=== PATIENT | male | born 1945 | race Caucasian/White ===

== ENCOUNTER 2019-04-19 08:35 | Emergency (ER) | payer MEDICARE, SELFPAY | END 2019-04-19 12:00 | disposition home or self-care (01) | PROVIDERS: Family Provider Family Medicine | DX: R11.2 Nausea with vomiting, unspecified (principal); R19.7 Diarrhea, unspecified | CPT/HCPCS: 80053; 81003; 83690; 85025; 87804 ×2; J2405; J7040 ==

== ENCOUNTER → 2019-07-05 10:01 | Outpatient (BNVA) | payer OTHER, SELFPAY | PROVIDERS: Family Provider Family Medicine; PCP Family Medicine; Visit Provider Otolaryngology | DX: J02.9 Acute pharyngitis, unspecified (principal); R13.10 Dysphagia, unspecified; J34.2 Deviated nasal septum; J34.3 Hypertrophy of nasal turbinates; K22.0 Achalasia of cardia | CPT/HCPCS: 99203; 99214 ==

== ENCOUNTER → 2019-08-01 09:24 | Outpatient (BNVA) | payer OTHER, SELFPAY | PROVIDERS: Family Provider Family Medicine; PCP Family Medicine; Visit Provider Otolaryngology | DX: R13.10 Dysphagia, unspecified (principal); J02.9 Acute pharyngitis, unspecified; J34.2 Deviated nasal septum; J34.3 Hypertrophy of nasal turbinates; K22.0 Achalasia of cardia | CPT/HCPCS: 99214 ==

== ENCOUNTER 2019-10-14 12:24 | Emergency (ER) | payer MEDICARE, SELFPAY ==
[2019-10-14 12:30] VITALS: BP 141/71; PULSE 64; RESP 16; TEMP 36.8; O2SAT 96; BMI 28.5
--- NOTE | 2019-10-14 12:49 | ED_ITS ---
HPI - Headache General: Chief Complaint: Headache Stated Complaint: headache Time Seen by Provider: 10/14/19 12:36 History of Present Illness: HPI Narrative: Patient is a 74 year old male presenting with a severe neuralgia attack. he is treated by Dr. Samuel in [place] for this and takes tegretol at home. He took a double dose this morning as he is instructed to do when these attacks happen. He says that attack started yesterday and he took 9 tegretol throughout the day and it went away - but is now back and not responding to the home meds. He showed me a paper from his doctor suggesting solu-medrol and benadryl for the symptoms. Prior notes from a few years ago here also indicate that phosphenytoin and toradol, as well as dilaudid may be helpful. Associated symptoms: Reports nausea; Deny chest pain or fever(s) Review of Systems General: Reports: 10 or more systems reviewed and unremarkable except in HPI and below Const: Denies: fever(s) or chills Eyes: Denies: change in vision ENMT: Reports: ear or mastoid pain Card: Denies: chest pain Resp: Denies: dyspnea GI: Reports: nausea; Denies: abdominal pain Neuro: Reports: headache(s); Denies: numbness in extremities, weakness in extremities, sensory changes, lack of coordination or difficulty walking [facility] ED PFSH: Medical History (Updated 10/14/19 @ 16:42 by Lazara Underwood MD) Atherosclerosis of coronary artery of [place] heart without angina pectoris Carpal tunnel syndrome Cricopharyngeal achalasia Deviated septum Dyslipidemia (high LDL; low HDL) Dysphagia High cholesterol HTN (hypertension) Hx of hyperlipidemia Hx of myocardial infarction Nasal turbinate hypertrophy Surgical History H/O neck surgery H/O shoulder surgery Hx of angioplasty Family History Other CAD (coronary artery disease) Cancer Stroke Denies family history of Diabetes Clotting disorder Dementia Hyperlipidemia Psychiatric illness Chronic kidney disease (CKD) Suicide Anesthesia complication Bleeding disorder Family history of premature coronary artery disease Lung disease Hypertension Social History Smoking and tobacco status: never smoked Alcohol intake: never Physical Exam Const: COMMON NORMALS: patient oriented x3 and alert GENERAL APPEARANCE: well kempt, in distress and anxious; not diaphoretic HENMT: COMMON NORMALS: normocephalic and hearing grossly normal bilaterally (not tested due to patient distress) HEAD & SCALP: normal to inspection and normocephalic FACE & SINUS: normal facial exam Neck/C-Spine: COMMON NORMALS: no JVD Chest: COMMONS NORMALS: normal inspection of the chest and normal palpation of entire chest wall Resp: COMMON NORMALS: normal respiratory effort, No use of accessory muscles and clear to auscultation bilaterally AUSCULTATION: clear to auscultation bilaterally Cardio: COMMON NORMALS: no JVD, regular rate, regular rhythm and No murmurs present (Cardio) RATE: regular rate RHYTHM: regular rhythm GI: COMMON NORMALS: Normal to inspection, nondistended, normoactive bowel sounds present and Soft to palpation PALPATION: Yes Soft to palpation Back/Pelvis: COMMON NORMALS: thoracic and lumbar spine normal to inspection Extremity: COMMON NORMALS: normal to inspection Neuro: COMMON NORMALS: patient oriented x3 SENSORIUM/ORIENTATION: Yes alert Psych: APPEARANCE: Yes well kempt Course Reevaluation(s): Reevaluation #1: Patient resting with eyes closed - reports some improvement with less than half of the solumedrol infused. Time: 13:38 Reevaluation #2: Much improved - but still having sharp pains every 15 seconds or so that are still very painful. Will try fosphenytoin and toradol - which he has had in the past with good results as well. Time: 14:41 Vital Signs: Vital signs: Vital Signs Temperature 98.3 F 10/14/19 12:30 Pulse Rate 65 10/14/19 16:58 Respiratory Rate 18 10/14/19 16:58 Blood Pressure 134/61 10/14/19 16:58 Pulse Oximetry 96 10/14/19 16:58 MDM - Headache MDM Narrative: Medical decision making narrative: Symptoms consistent with other episodes of trigeminal neuralgia for this patient - will try medications that have helped him in the past - with goal of discharge home. Discharge Plan Discharge Patient Disposition: Home, Self-Care Clinical Impression: Trigeminal neuralgia Condition: Stable Prescriptions: No Action gemfibrozil 600 mg tablet 600 mg PO BID RF: 0 rosuvastatin [Crestor] 10 mg tablet 10 mg PO DAILY RF: 0 aspirin [Adult Low Dose Aspirin] 81 mg tablet,delayed release (DR/EC) 81 mg PO BEDTIME RF: 0 cyanocobalamin (vitamin B-12) 1,000 mcg capsule 1,000 mcg PO DAILY RF: 0 krill oil 500 mg capsule 350 mg PO DAILY RF: 0 coenzyme Q10 [Co Q-10] 200 mg capsule 200 mg PO DAILY RF: 0 baclofen 10 mg tablet 10 mg PO TID RF: 0 diphenhydramine HCl 25 mg Tablet 12.5 mg PO BID RF: 0 carbamazepine 100 mg tablet,chewable 200 mg PO BID RF: 0 metoprolol tartrate 50 mg Tablet 50 mg PO BID RF: 0 losartan 25 mg tablet 25 mg PO DAILY RF: 0 Discharge Orders: Discharge Order (Routine); Ordered 10/14/19 Ordered By: Lazara Underwood Referrals: Vasyl Gaspar MD [Primary Care Provider] - Discharge Diet: Advance as tolerated Discharge Activity: Resume usual activity Patient Instructions: Trigeminal Neuralgia (ED) Activity Restrictions/Additional Instructions: Rest today as you may be dizzy from the medications. Resume your regular medications at home this evening. Return if new or worse symptoms, or if any symptoms that are not typical of your prior episodes occur. Follow up with Dr. Samuel by phone on Wednesday. Discharge Date/Time: 10/14/19 16:58 Coding Level of Care Code ED Exec. Creative Director for Kelsie Salcedo
[2019-10-14] MEDS: diphenhydrAMINE 50 mg/mL SDV 1mL 25 MG IVP (12:55)
[2019-10-14 13:41] VITALS: BP 123/83; PULSE 64; RESP 20; O2SAT 95
[2019-10-14] MEDS: ketorolac 30 mg/mL INJ 15 MG IVP (14:43)
[2019-10-14 14:45] VITALS: BP 126/72; PULSE 63; RESP 18; O2SAT 96
[2019-10-14] MEDS: fosphenytoin 1,000 MG in sodium chloride 0.9% (100 ml) 100 ML 200 MG IV (14:55)
[2019-10-14 16:58] VITALS: BP 134/61; PULSE 65; RESP 18; O2SAT 96
== END 2019-10-14 16:58 | disposition home or self-care (01) ==
PROVIDERS: Emergency Provider Emergency Medicine; PCP Family Medicine
DX: G50.0 Trigeminal neuralgia (principal); Z79.82 Long term (current) use of aspirin; E78.5 Hyperlipidemia, unspecified; I10 Essential (primary) hypertension; I25.2 Old myocardial infarction
CPT/HCPCS: 12345; 96365; 96367; 96375; 99283; J1200; J1885; J2930; J7050; Q2009

== ENCOUNTER → 2019-10-30 10:27 | Outpatient (BNVA) | payer MEDICARE, SELFPAY | PROVIDERS: PCP Family Medicine; Visit Provider Urology | DX: N40.0 Benign prostatic hyperplasia without lower urinary tract symptoms (principal); Z87.438 Personal history of other diseases of male genital organs; R35.8 Other polyuria; N52.1 Erectile dysfunction due to diseases classified elsewhere | CPT/HCPCS: 81001 ==

== ENCOUNTER 2020-02-01 09:09 | Outpatient (CLI) | payer MEDICARE, SELFPAY ==
--- NOTE | 2020-02-01 09:20 | FL_ITS ---
WS: [id number] Barium swallow and esophagram, 02/01/2020 Clinical Data: DYSPHAGIA Comparison: None. Fluoroscopy time: 1.0 minutes. Findings: The patient has had an anterior cervical disc fusion of C5-C7. There is obliteration of the C5-C6 dis c and narrowing at the C6-C7 disc. There is marked anterior osteoarthritic spurring from C2 through C 4 with calcification of the anterior longitudinal ligament at these levels. The patient swallowed the thick and thin barium, and it flowed through the hypopharynx without hesita tion. There is impingement by the C4-C5 anterior osteophyte onto the posterior surface of the hypopha rynx. No stricture, mass, polyp or erosion was seen. No aspiration or penetration occurred. The barium entered the esophagus and there was normal motility throughout. No hiatal hernia, reflux, stricture, polyp, mass, erosion or ulcer was noted. No reflux was present. FL/FL barium swallow [id number] Impression: 1. Large anterior osteophyte at C4-C5 which impinges onto the posterior surface of the hypopharynx. 2. 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 3. The thoracic esophagus was normal.
--- NOTE | 2020-02-01 09:25 | CT_ITS ---
WS: [id number] CT NECK WITH CONTRAST HISTORY: DYSPHAGIA TECHNIQUE: Contiguous 5 mm axial images are performed through the neck with intravenous contrast. Sag ittal and coronal reformats are also submitted. All CT scans at [facility] use at least o ne of these dose optimization techniques: automated exposure control; mA and/or kV adjustment per pat ient size (includes targeted exams where dose is matched to clinical indication); or iterative recons truction. CONTRAST: CONTRAST: Omnipaque 300; 95 mL IV. DLP: 773.94 mGy-cm. COMPARISON: None available. Nasopharynx, oropharynx, hypopharynx and larynx are unremarkable. No soft tissue masses or abnormal e nhancement. Torus tubarius and fossa of Rosenmuller and parapharyngeal fat are normal. No significant lymphadenopathy is identified. Thyroid gland and salivary glands are normally enhancing with no masses. Anterior cervical fusion from C5 through C7. Large anterior osteophytes in the cervical spine. Visualized portions of the skull base demonstrate no abnormalities. Orbits and globes are within norm al limits. No soft tissue masses. Visualized paranasal sinuses and mastoid air cells are normal. Lung apices are clear. CT/CT neck w con* [id number] IMPRESSION: No oropharyngeal mass or adenopathy.
[2020-02-01 10:03] LABS: Blood Urea Nitrogen 14 mg/dL (8-23)
== END 2020-02-01 09:10 | disposition home or self-care (01) ==
LOC: CT 09:10
PROVIDERS: PCP Family Medicine; Visit Provider Specialist
DX: R13.10 Dysphagia, unspecified (principal); M25.78 Osteophyte, vertebrae; M43.22 Fusion of spine, cervical region
CPT/HCPCS: 36415; 70491; 74220; 82565; 84520; Q9967

== ENCOUNTER 2020-02-02 10:29 | Outpatient (CLI) | payer MEDICARE, SELFPAY ==
--- NOTE | 2020-02-02 10:32 | FL_ITS ---
WS: [id number] Modified barium swallow, 02/02/2020 Clinical Data: Other dysphagia Comparison: None. Fluoroscopy time: 2.3 minutes. Findings: The patient initiated swallowing. There was no aspiration or penetration. There was posterior encroac hment by a large osteophyte at C4-C5 on the hypopharynx and results which decreased hypopharyngeal ex cursion. This osteophyte impinges on the movement of the barium bolus. The anterior cervical disc fus ion at C5-C7 is intact. FL/FL barium swallow modifd [id number] Impression: Osteophyte at C4-C5 which presses onto the posterior hypopharynx and impinges o n the movement of the barium bolus.
== END 2020-02-02 10:30 | disposition home or self-care (01) ==
LOC: RAD 10:30
PROVIDERS: PCP Family Medicine; Visit Provider Specialist
DX: R13.10 Dysphagia, unspecified (principal); M25.78 Osteophyte, vertebrae
CPT/HCPCS: 74230; 92611

== ENCOUNTER 2020-02-06 18:45 | Emergency (ER) | payer MEDICARE, SELFPAY ==
[2020-02-06 18:50] VITALS: BP 171/79; PULSE 67; RESP 18; TEMP 37.2; O2SAT 95; BMI 27.5
--- NOTE | 2020-02-06 19:46 | W.ED.NEUROSD ---
HPI - Neuro Symptoms/Deficit General: Chief Complaint: Neuro Symptoms/Deficit Stated Complaint: neuralgia attack? Time Seen by Provider: 02/06/20 19:46 History of Present Illness: HPI Narrative: Patient has he has attack of his trigeminal neuralgia. Home medicines not working he would like to have Solu-Medrol and Benadryl which it worked in the past. Said he is having pain shoot up in his head about every 7 to 12 seconds Onset (ago): hour(s) Associated symptoms: Deny chest pain, headache(s), nausea or vomiting Review of Systems Const: Denies: fever(s), chills or body aches Eyes: Denies: change in vision or blurry vision ENMT: Denies: throat pain or nasal congestion Card: Denies: chest pain or dyspnea on exertion Resp: Denies: dyspnea, productive cough or non-productive cough GI: Denies: abdominal pain, nausea or vomiting : Denies: difficulty urinating Musc: Denies: extremity pain Skin/Breast: Denies: rash Neuro: Reports: other (Trigeminal neuralgia attack/spasm left side of the head has keep ear covered to help with that from not occurring is had many attacks in the past); Denies: headache(s) Psych: Denies: anxiety or depression Sage/Lymph: Denies: easy bruising PFSH ED PFSH: Medical History (Updated 02/06/20 @ 21:17 by CONCHIS Mills) Atherosclerosis of coronary artery of [place] heart without angina pectoris Carpal tunnel syndrome Cricopharyngeal achalasia Deviated septum Dyslipidemia (high LDL; low HDL) Dysphagia Fatigue High cholesterol HTN (hypertension) Hx of hyperlipidemia Hx of myocardial infarction Nasal turbinate hypertrophy Surgical History H/O neck surgery H/O shoulder surgery Hx of angioplasty Family History Other CAD (coronary artery disease) Cancer Stroke Denies family history of Diabetes Clotting disorder Dementia Hyperlipidemia Psychiatric illness Chronic kidney disease (CKD) Suicide Anesthesia complication Bleeding disorder Family history of premature coronary artery disease Lung disease Hypertension Social History Smoking and tobacco status: never smoked Alcohol intake: never Marital status: Current occupational status: retired History of recent travel: No Physical Exam Const: COMMON NORMALS: no acute distress, average body habitus and patient oriented x3 HENMT: COMMON NORMALS: normocephalic HEAD & SCALP: normal to inspection and normocephalic FACE & SINUS: normal facial exam Eye: COMMON NORMALS: conjunctivae normal GENERAL EYE: appearance normal, both eyes and all related structures CONJUNCTIVA: Yes conjunctivae normal Neck/C-Spine: COMMON NORMALS: no JVD Chest: COMMONS NORMALS: normal inspection of the chest Resp: COMMON NORMALS: normal respiratory effort and clear to auscultation bilaterally AUSCULTATION: clear to auscultation bilaterally Cardio: COMMON NORMALS: no JVD, regular rate and regular rhythm RATE: regular rate RHYTHM: regular rhythm GI: COMMON NORMALS: Normal to inspection, nondistended, normoactive bowel sounds present Extremity: COMMON NORMALS: normal to inspection and full ROM Neuro: COMMON NORMALS: patient oriented x3, CN's II-XII intact bilaterally, moves all extremities and no focal motor deficits Course Vital Signs: Vital signs: Vital Signs Temperature 98.9 F 02/06/20 18:50 Pulse Rate 56 L 02/06/20 21:00 Respiratory Rate 16 02/06/20 21:00 Blood Pressure 134/69 02/06/20 21:00 Pulse Oximetry 96 02/06/20 21:00 MDM - Neuro Symptoms/Deficit MDM Narrative: Medical decision making narrative: flare up of trigeminal neuralgia, responded well to meds Discharge Plan Discharge Patient Disposition: Home Clinical Impression: Trigeminal neuralgia Condition: Stable Prescriptions: No Action aspirin [Adult Low Dose Aspirin] 81 mg tablet,delayed release (DR/EC) 81 mg PO BEDTIME RF: 0 cyanocobalamin (vitamin B-12) 1,000 mcg capsule 1,000 mcg PO DAILY RF: 0 krill oil 500 mg capsule 350 mg PO DAILY RF: 0 coenzyme Q10 [Co Q-10] 200 mg capsule 200 mg PO DAILY RF: 0 gemfibrozil 600 mg tablet 600 mg PO BID Qty: 180 RF: 3 losartan [Cozaar] 25 mg tablet 25 mg PO DAILY Qty: 90 RF: 3 rosuvastatin [Crestor] 10 mg tablet 10 mg PO DAILY Qty: 90 RF: 3 metoprolol tartrate 50 mg tablet 50 mg PO BID Qty: 180 RF: 3 diphenhydramine HCl 25 mg Tablet 12.5 mg PO BID RF: 0 carbamazepine 100 mg tablet,chewable 200 mg PO BID RF: 0 Discharge Orders: Discharge Order (Routine); Ordered 02/06/20 Ordered By: Edwin Rivera Referrals: Vasyl Gaspar MD [Primary Care Provider] - Discharge Diet: Usual diet Discharge Activity: Increase activity as tolerated Activity Restrictions/Additional Instructions: Follow-up your primary care provider as needed Discharge Date/Time: 02/06/20 21:32 Coding Level of Care Code ED Wardrobe Coordinator for Chg Fwd Exam Comprehensive
[2020-02-06] MEDS: diphenhydrAMINE 50 mg/mL SDV 1mL 25 MG IVP (20:21)
[2020-02-06 21:00] VITALS: BP 134/69; PULSE 56; RESP 16; O2SAT 96
== END 2020-02-06 21:32 | disposition home or self-care (01) ==
PROVIDERS: Emergency Provider Nurse Practitioner Family; PCP Family Medicine
DX: G50.0 Trigeminal neuralgia (principal); Z79.82 Long term (current) use of aspirin; E78.5 Hyperlipidemia, unspecified; I10 Essential (primary) hypertension; I25.2 Old myocardial infarction
CPT/HCPCS: 12345; 96374; 96375; 99283; J1200; J2930

== ENCOUNTER → 2020-07-30 08:51 | Outpatient (BNVA) | payer MEDICARE, SELFPAY | PROVIDERS: PCP Family Medicine; Visit Provider Internal Medicine Cardiovascular Disease | DX: E78.5 Hyperlipidemia, unspecified (principal) | CPT/HCPCS: 80061; 80076 ==

== ENCOUNTER → 2020-10-29 09:48 | Outpatient (BNVA) | payer MEDICARE, SELFPAY | PROVIDERS: PCP Family Medicine; Visit Provider Urology | DX: N40.0 Benign prostatic hyperplasia without lower urinary tract symptoms (principal); N52.1 Erectile dysfunction due to diseases classified elsewhere; Z87.438 Personal history of other diseases of male genital organs | CPT/HCPCS: 81003 ==

== ENCOUNTER → 2021-05-28 08:09 | Outpatient (BNVA) | payer MEDICARE, SELFPAY | PROVIDERS: PCP Family Medicine; Visit Provider Urology | DX: N40.0 Benign prostatic hyperplasia without lower urinary tract symptoms (principal) | CPT/HCPCS: 81003 ==

== ENCOUNTER → 2021-09-23 09:05 | Outpatient (BNVA) | payer MEDICARE, SELFPAY | PROVIDERS: PCP Family Medicine; Visit Provider Nurse Practitioner Family | DX: N40.0 Benign prostatic hyperplasia without lower urinary tract symptoms (principal) | CPT/HCPCS: 81003 ==

== ENCOUNTER → 2021-10-09 11:30 | Outpatient (BNVA) | payer MEDICARE, SELFPAY | PROVIDERS: PCP Family Medicine; Visit Provider Internal Medicine Cardiovascular Disease | DX: I25.10 Atherosclerotic heart disease of native coronary artery without angina pectoris (principal); E78.5 Hyperlipidemia, unspecified; I10 Essential (primary) hypertension | CPT/HCPCS: 99214 ==

== ENCOUNTER 2021-10-31 11:40 | Outpatient (CLI) | payer MEDICARE, SELFPAY ==
--- NOTE | 2021-10-31 | XR_ITS ---
WS: [id number] SKULL, 4 VIEWS HISTORY: RIGHT TEMPORAL HEADACHE COMPARISON: None available. Skull appears intact. No depressed skull fracture. No air-fluid levels in the sinuses. The bony structures are unremarkable. XR/XR skull min 4V* [id number] IMPRESSION: Negative skull radiographs.
== END 2021-10-31 11:41 | disposition home or self-care (01) ==
LOC: RADOUTREAD 11-03 11:42
PROVIDERS: PCP Family Medicine; Visit Provider Nurse Practitioner
DX: R51.9 Headache, unspecified (principal)
CPT/HCPCS: 70260

== ENCOUNTER → 2021-12-30 15:02 | Outpatient (BNVA) | payer MEDICARE, SELFPAY | PROVIDERS: PCP Family Medicine; Visit Provider Urology | DX: N40.1 Benign prostatic hyperplasia with lower urinary tract symptoms (principal); R35.1 Nocturia; R33.9 Retention of urine, unspecified | CPT/HCPCS: 51741; 51798; 81003; 99213 ==

== ENCOUNTER 2022-05-07 06:00 | Outpatient (RCR) | payer MEDICARE, SELFPAY | END 2022-05-30 23:59 | disposition home or self-care (01) | LOC: SOT 06:00 | PROVIDERS: PCP Family Medicine; Visit Provider Family Medicine | DX: M65.321 Trigger finger, right index finger (principal) | CPT/HCPCS: 97018; 97035; 97110; 97140; 97166 ==

== ENCOUNTER → 2022-05-12 13:25 | Outpatient (BNVA) | payer MEDICARE, SELFPAY | PROVIDERS: PCP Family Medicine; Visit Provider Nurse Practitioner Family | DX: I25.10 Atherosclerotic heart disease of native coronary artery without angina pectoris (principal); I10 Essential (primary) hypertension; I25.2 Old myocardial infarction | CPT/HCPCS: 99214 ==

== ENCOUNTER → 2022-11-24 16:18 | Outpatient (BNVA) | payer MEDICARE, SELFPAY | PROVIDERS: PCP Family Medicine; Visit Provider Internal Medicine Cardiovascular Disease | DX: N40.0 Benign prostatic hyperplasia without lower urinary tract symptoms (principal); Z79.01 Long term (current) use of anticoagulants; R06.02 Shortness of breath; I25.10 Atherosclerotic heart disease of native coronary artery without angina pectoris; I10 Essential (primary) hypertension; Z86.39 Personal history of other endocrine, nutritional and metabolic disease | CPT/HCPCS: 36415; 71046; 80048; 83880; 85025; 85378; 99214 ==

== ENCOUNTER → 2023-06-02 13:57 | Outpatient (BNVA) | payer MEDICARE, SELFPAY | PROVIDERS: PCP Family Medicine; Visit Provider Internal Medicine Cardiovascular Disease | DX: I25.10 Atherosclerotic heart disease of native coronary artery without angina pectoris (principal); E78.5 Hyperlipidemia, unspecified; I83.91 Asymptomatic varicose veins of right lower extremity; I10 Essential (primary) hypertension | CPT/HCPCS: 99214 ==

== ENCOUNTER 2023-06-22 11:57 | Outpatient (CLI) | payer MEDICARE, SELFPAY ==
--- NOTE | 2023-06-22 12:30 | USCV_ITS ---
Vasyl Tam Age: 78 Gender: M : 1945 Exam Date: 06/22/2023 13:05 Ordering Phys: Gee Moreira MD ([email or web address]) Technologist: AMELIE [place] [facility] [place]: HISTORY: PROCEDURES: FINDINGS: The veins were found to be easily compressible with spontaneous blood flow. Non pulsatile flow pattern. No significant venous reflux were noted CONCLUSIONS No significant venous reflux either in the deep or in the superficial veins on the right side. No evidence of DVT in the above-mentioned identifiable veins Dr Gee Moreira MD [facility] (Electronically Signed) Final Date: 23 June 2023 19:03 S
== END 2023-06-22 11:58 | disposition home or self-care (01) ==
LOC: RAD 11:58
PROVIDERS: PCP Family Medicine; Visit Provider Internal Medicine Cardiovascular Disease
DX: R06.02 Shortness of breath (principal)
CPT/HCPCS: 93971; 99214

== ENCOUNTER 2023-08-01 11:19 | Emergency (ER) | payer MEDICARE, SELFPAY ==
[2023-08-01 11:32] VITALS: BP 120/71; PULSE 71; RESP 16; TEMP 36.5; O2SAT 97; BMI 24.1
--- NOTE | 2023-08-01 11:50 | ED_ITS ---
HPI - Headache General: Chief Complaint: Headache Stated Complaint: ear&head pain Time Seen by Provider: 08/01/23 11:36 Source: patient Mode of arrival: ambulatory Limitations: no limitations History of Present Illness: 78-year-old male who has a long history of trigeminal neuralgia. He states that he started having head pain on the left side of his head that was a lightening type pain that started today states it feels just like his previous trigeminal neuralgia. He states the pain severe he rates it a 9 out of 10 denies any vomiting denies any fever Associated symptoms: Deny chest pain, fever(s), nausea, rash or vomiting Review of Systems Const: Denies: fever(s), chills, body aches or change in appetite ENMT: Denies: throat pain or dental pain Card: Denies: chest pain Resp: Denies: dyspnea GI: Denies: abdominal pain, nausea, vomiting or diarrhea Musc: Denies: neck pain or back pain Skin/Breast: Denies: rash Neuro: Reports: headache(s) PFSH ED PFSH: Medical History Polyuria Fatigue Pt ATTRIBUTES THIS TO THE NECK SURGERY HE HAD 2008. Dyslipidemia (high LDL; low HDL) Atherosclerosis of coronary artery of [place] heart without angina pectoris High cholesterol Carpal tunnel syndrome HTN (hypertension) Hx of hyperlipidemia Hx of myocardial infarction Cricopharyngeal achalasia Nasal turbinate hypertrophy Deviated septum Dysphagia Surgical History History of carpal tunnel surgery H/O shoulder surgery H/O neck surgery Hx of angioplasty Family History Father No problems noted. Mother , in her 90's No problems noted. Other CAD (coronary artery disease) Cancer Stroke Denies family history of Diabetes Clotting disorder Dementia Hyperlipidemia Psychiatric illness Chronic kidney disease (CKD) Suicide Anesthesia complication Bleeding disorder Family history of premature coronary artery disease Lung disease Hypertension Social History Smoking and tobacco/nicotine status: never used tobacco/nicotine Alcohol intake: never Substance/Drug Use: never Marital status: Current occupational status: retired Physical Exam Const: COMMON NORMALS: no acute distress, patient oriented x3 and healthy appearing HENMT: COMMON NORMALS: normocephalic and atraumatic HEAD & SCALP: normocephalic and atraumatic Neck/C-Spine: COMMON NORMALS: full ROM and supple Chest: COMMONS NORMALS: normal inspection of the chest Resp: COMMON NORMALS: normal respiratory effort Cardio: COMMON NORMALS: regular rate, regular rhythm and No murmurs present (Cardio) RATE: regular rate RHYTHM: regular rhythm Extremity: COMMON NORMALS: normal to inspection and full ROM Neuro: COMMON NORMALS: patient oriented x3, moves all extremities and no focal motor deficits Psych: COMMON NORMALS: mental status grossly normal, Normal thought process present and cooperative THOUGHT PROCESS: Normal thought process present Skin: COMMON NORMALS: no rashes or lesions noted and no wounds GENERAL SKIN EXAM: no rashes or lesions noted Course Vital Signs: Vital signs: Vital Signs Temperature 97.7 F 08/01/23 11:32 Pulse Rate 67 08/01/23 12:05 Respiratory Rate 14 08/01/23 12:05 Blood Pressure 125/68 08/01/23 12:05 Pulse Oximetry 96 08/01/23 12:05 Oxygen Delivery Me thod Room Air 08/01/23 11:32 MDM - Headache Medical Decision Making Patient presents with headache consistent with his trigeminal neuralgia headaches much improved here after meds no signs of temporal arteritis or subarachnoid hemorrhage. He is stable for discharge he is follows PCP and return if worsening he understands agrees to plan Medical Records I reviewed the patient's medical records. No radiology studies performed this visit Discharge Plan Discharge Patient Disposition: Home Clinical Impression: Headache Condition: Stable Prescriptions: No Action cholecalciferol (vitamin D3) 50 mcg (2,000 unit) capsule 50 mcg PO DAILY aspirin [Adult Low Dose Aspirin] 81 mg tablet,delayed release (DR/EC) 81 mg PO BEDTIME cyanocobalamin (vitamin B-12) 1,000 mcg capsule 1,000 mcg PO DAILY coenzyme Q10 [Co Q-10] 200 mg capsule 200 mg PO DAILY tamsulosin 0.4 mg capsule 0.4 mg PO BID nitroglycerin 0.4 mg tablet, sublingual See Rx Instructions .ROUTE .COMPLEX Qty: 100 5RF Dose Instruction: DISSOLVE 1 TABLET UNDER THE TONGUE EVERY 5 MINUTES NEEDED FOR CHEST PAIN, DO NOT EXCEED 3 DOSES PER EPISODE Rx Instructions: DISSOLVE 1 TABLET UNDER THE TONGUE EVERY 5 MINUTES NEEDED FOR CHEST PAIN, DO NOT EXCEED 3 DOSES PER EPISODE amlodipine 5 mg tablet 5 mg PO DAILY Qty: 100 3RF losartan [Cozaar] 25 mg tablet 25 mg PO DAILY Qty: 90 3RF gemfibrozil 600 mg tablet See Rx Instructions .ROUTE .COMPLEX Qty: 180 3RF Dose Instruction: TAKE 1 TABLET TWICE A DAY Rx Instructions: TAKE 1 TABLET TWICE A DAY carbamazepine 100 mg tablet,chewable 100 mg PO BID Discharge Orders: Discharge ED (Routine); Ordered 08/01/23 Ordered By: Lavon Mercer Referrals: Vasyl Gaspar MD [Primary Care Provider] - 1-3 days Discharge Diet: Advance as tolerated Discharge Activity: Resume usual activity Patient Instructions: General Headache (ED) Coding Level of Care Code ED Riprap Worker for Kelsie Salcedo
[2023-08-01 11:59] VITALS: RESP 20; O2SAT 95
[2023-08-01] MEDS: HYDROmorphone 1 mg/mL INJ 1 mL 0.5 MG IVP (11:59)
[2023-08-01] MEDS: ketorolac 30 mg/mL INJ 15 MG IVP (12:00)
[2023-08-01] MEDS: diphenhydrAMINE 50 mg/mL SDV 1mL 25 MG IVP (12:01)
[2023-08-01] MEDS: dexamethasone 10 mg/mL INJ IVP (12:02)
[2023-08-01 12:05] VITALS: BP 125/68; PULSE 67; RESP 14; O2SAT 96
[2023-08-01 12:43] VITALS: BP 129/70; PULSE 64; O2SAT 94
== END 2023-08-01 12:44 | disposition home or self-care (01) ==
PROVIDERS: Emergency Provider Emergency Medicine; PCP Family Medicine
DX: R51.9 Headache, unspecified (principal); Z79.82 Long term (current) use of aspirin; E78.5 Hyperlipidemia, unspecified; I25.10 Atherosclerotic heart disease of native coronary artery without angina pectoris; I10 Essential (primary) hypertension; I25.2 Old myocardial infarction
CPT/HCPCS: 96374; 96375; 99284; J1100; J1170; J1200; J1885

== ENCOUNTER 2023-08-02 08:25 | Emergency (ER) | payer MEDICARE, SELFPAY ==
[2023-08-02] VITALS (7 sets, daily range): BP systolic 131–167; BP diastolic 64–96; PULSE 60–79; RESP 16–23; TEMP 36.6; O2SAT 95–99; BMI 23.8
[2023-08-02 09:01] LABS: Basophils % 0.2 %; Eosinophils % 0.3 %; Hematocrit 45.3 % (37-53); Lymphocytes # 1.8 10^3/uL (0.8-4.8); Lymphocytes % 19.8 %; Mean Corpuscular Hemoglobin 30.5 pg (27-33); Mean Corpuscular Volume 95.4 fl (82-101); Mean Platelet Volume 9.8 fL (7.4-10.4); Monocytes # 0.9 10^3/uL (0.2-0.9); Monocytes % 9.4 %; Neutrophils # 6.48 10^3/uL (1.8-7.7); Nucleated Red Blood Cells % 0 %; Platelet Count 252 10^3/cmm (157-399); Red Blood Count 4.75 10^6/uL (3.85-5.65); Red Cell Distribution Width 13.2 % (12.1-15.1); White Blood Count 9.26 10^3/uL (3.29-11.43)
--- NOTE | 2023-08-02 09:05 | ED_ITS ---
HPI - Headache 2 General: Chief Complaint: Headache Stated Complaint: headache Time Seen by Provider: 08/02/23 08:30 History of Present Illness: 78-year-old male presents emergency room he has a history of trigeminal neuralgia had previously been on carbamazepine at 200 up to he thought is much as 3 times a day he developed tremors they decreased it down he been tapering down he is currently on 100 twice a day. In the last year he has had 3 episodes of for severe trigeminal neuralgia pain. he was seen last night states initially pain improved but is now worsened again as bad at the head of bed before he was seen last night. He did take his carbamazepine today. No recent illnesses. Associated symptoms: Deny chest pain, fever(s) or rash Review of Systems 2 Const: Denies: fever(s) or chills Card: Denies: chest pain Resp: Denies: dyspnea GI: Denies: abdominal pain : Denies: dysuria, urinary frequency or urinary urgency Musc: Denies: neck pain or back pain Skin/Breast: Denies: rash Neuro: Reports: headache(s) (facial pain) PFSH ED 2 PFSH: Medical History Polyuria Fatigue Pt ATTRIBUTES THIS TO THE NECK SURGERY HE HAD 2008. Dyslipidemia (high LDL; low HDL) Atherosclerosis of coronary artery of [place] heart without angina pectoris High cholesterol Carpal tunnel syndrome HTN (hypertension) Hx of hyperlipidemia Hx of myocardial infarction Cricopharyngeal achalasia Nasal turbinate hypertrophy Deviated septum Dysphagia Surgical History History of carpal tunnel surgery H/O shoulder surgery H/O neck surgery Hx of angioplasty Family History Father No problems noted. Mother , in her 90's No problems noted. Other CAD (coronary artery disease) Cancer Stroke Denies family history of Diabetes Clotting disorder Dementia Hyperlipidemia Psychiatric illness Chronic kidney disease (CKD) Suicide Anesthesia complication Bleeding disorder Family history of premature coronary artery disease Lung disease Hypertension Social History Smoking and tobacco/nicotine status: never used tobacco/nicotine Alcohol intake: never Substance/Drug Use: never Marital status: Current occupational status: retired Physical Exam 2 Const: COMMON NORMALS: no acute distress GENERAL APPEARANCE: cooperative and comfortable ORIENTATION/CONSCIOUSNESS: Yes awake, Yes oriented to person, Yes oriented to place and Yes oriented to time HENMT: COMMON NORMALS: normocephalic, atraumatic and hearing grossly normal bilaterally HEAD & SCALP: normocephalic and atraumatic Resp: COMMON NORMALS: normal respiratory effort, No retractions, No use of accessory muscles and clear to auscultation bilaterally AUSCULTATION: clear to auscultation bilaterally Cardio: COMMON NORMALS: regular rate, regular rhythm and No murmurs present (Cardio) RATE: regular rate RHYTHM: regular rhythm GI: COMMON NORMALS: Soft to palpation and No hepatosplenomegaly present A USCULTATION: Yes normoactive bowel sounds PALPATION: Yes Soft to palpation, No Tenderness to palpation present (GI), No Guarding due to palpation present (GI) and Yes No hepatosplenomegaly present Extremity: COMMON NORMALS: normal to inspection, capillary refill normal, no clubbing, cyanosis or edema, no calf tenderness and no pedal edema Neuro: SENSORIUM/ORIENTATION: Yes oriented to person, Yes oriented to place and Yes oriented to time Skin: COMMON NORMALS: no rashes or lesions noted GENERAL SKIN EXAM: no rashes or lesions noted Course 2 Vital Signs: Vital signs: Vital Signs Temperature 97.8 F 08/02/23 08:31 Pulse Rate 60 08/02/23 13:58 Respiratory Rate 16 08/02/23 13:58 Blood Pressure 134/84 08/02/23 13:58 Pulse Oximetry 96 08/02/23 13:58 Oxygen Delivery Me thod Room Air 08/02/23 13:04 MDM - Headache Medical Decision Making Patient was seen last night with a trigeminal neuralgia. Today he is persistent pain he had previously been on carbamazepine but it was decreased due to side effects he was down to 100 mg twice a day. Reviewed last night he was given ketorolac and Dilaudid and diphenhydramine. Reviewed with Dr. Douglas will initially gave him lidocaine 5 mg for kilogram to be run in over an hour after about 20 minutes began having side effects of the rate was decreased to deliver over 2 hours. He had only moderate improvement he was then given a dose of phenytoin which provided increased improvement along with half milligram Dilaudid most of his pain is resolved. Will discharge patient home at lamotrigine 50 mg twice a day for 2 weeks and increase to 100 mg twice a day for now increase carbamazepine to 200 mg twice daily and we will set him up to see neurology for further management of his trigeminal neuralgia Medical Records I reviewed the patient's medical records. Lab Data I reviewed the patient's lab results. 08/02/23 08:45 08/02/23 08:45 Laboratory Results WBC 9.26 10^3/uL (3.29-11.43) 08/02/23 08:45 RBC 4.75 10^6/uL (3.85-5.65) 08/02/23 08:45 Hgb 14.50 g/dL (11.27-16.99) 08/02/23 08:45 Hct 45.3 % (37-53) 08/02/23 08:45 MCV 95.4 fl (82-101) 08/02/23 08:45 MCH 30.5 pg (27-33) 08/02/23 08:45 MCHC 32.0 g/dL (30-55) 08/02/23 08:45 RDW 13.2 % (12.1-15.1) 08/02/23 08:45 Plt Count 252 10^3/cmm (157-399) 08/02/23 08:45 MPV 9.8 fL (7.4-10.4) 08/02/23 08:45 Neut % (Auto) 70.0 % 08/02/23 08:45 Lymph % (Auto) 19.8 % 08/02/23 08:45 [place] % (Auto) 9.4 % 08/02/23 08:45 Eos % (Auto) 0.3 % 08/02/23 08:45 Baso % (Auto) 0.2 % 08/02/23 08:45 Neut # (Auto) 6.48 10^3/uL (1.8-7.7) 08/02/23 08:45 Lymph # (Auto) 1.8 10^3/uL (0.8-4.8) 08/02/23 08:45 [place] # (Auto) 0.9 10^3/uL (0.2-0.9) 08/02/23 08:45 Eos # (Auto) 0.0 10^3/uL (0.0-0.8) 08/02/23 08:45 Baso # (Auto) 0.0 10^3/uL (0.0-0.1) 08/02/23 08:45 Nucleated RBC % (auto) 0 % 08/02/23 08:45 Nucleated RBCs # 0.0 /100WBC 08/02/23 08:45 Sodium 138 mmol/L (136-145) 08/02/23 08:45 Potassium 3.6 mmol/L (3.5-5.1) 08/02/23 08:45 Chloride 103 mmol/L (98-107) 08/02/23 08:45 Carbon Dioxide 21 mmol/L (22-29) L 08/02/23 08:45 Anion Gap 17.6 (5-19) 08/02/23 08:45 BUN 18 mg/dL (8-23) 08/02/23 08:45 Creatinine 0.9 mg/dL (0.7-1.2) 08/02/23 08:45 GFR Calculation Not Reportable 08/02/23 08:45 Glucose 118 mg/dL (65-115) H 08/02/23 08:45 Calculated Osmolality 289 mOsm/kg (285-295) 08/02/23 08:45 Calcium 8.8 mg/dL (8.5-10.5) 08/02/23 08:45 Total Bilirubin 0.5 mg/dL (0.15-1.2) 08/02/23 08:45 AST 15 U/L (0-40) 08/02/23 08:45 ALT 9 U/L (0-41) 08/02/23 08:45 Alkaline Phosphatase 82 U/L (40-130) 08/02/23 08:45 Total Protein 6.6 g/dL (6.6-8.7) 08/02/23 08:45 Albumin 3.9 g/dL (3.5-5.2) 08/02/23 08:45 Globulin 2.7 g/dL (1.3-4.6) 08/02/23 08:45 No radiology studies performed this visit Discharge Plan Discharge Patient Disposition: Home Clinical Impression: Trigeminal neuralgia Condition: Stable Prescriptions: New Lamictal 100 mg tablet 50 mg PO BID 30 Days Qty: 30 0RF Rx Instructions: 50 mg twice daily x 14 days then increase to 100 mg twice daily Changed carbamazepine 100 mg tablet,chewable 200 mg PO BID Qty: 120 0RF No Action cholecalciferol (vitamin D3) 50 mcg (2,000 unit) capsule 100 mcg PO DAILY aspirin [Adult Low Dose Aspirin] 81 mg tablet,delayed release (DR/EC) 81 mg PO BEDTIME cyanocobalamin (vitamin B-12) 1,000 mcg capsule 1,000 mcg PO DAILY coenzyme Q10 [Co Q-10] 200 mg capsule 400 mg PO DAILY nitroglycerin 0.4 mg tablet, sublingual See Rx Instructions .ROUTE .COMPLEX Qty: 100 5RF Dose Instruction: DISSOLVE 1 TABLET UNDER THE TONGUE EVERY 5 MINUTES NEEDED FOR CHEST PAIN, DO NOT EXCEED 3 DOSES PER EPISODE Rx Instructions: DISSOLVE 1 TABLET UNDER THE TONGUE EVERY 5 MINUTES NEEDED FOR CHEST PAIN, DO NOT EXCEED 3 DOSES PER EPISODE losartan [Cozaar] 25 mg tablet 25 mg PO DAILY Qty: 90 3RF pravastatin 40 mg tablet 40 mg PO BEDTIME gemfibrozil 600 mg tablet 600 mg PO BID Discharge Orders: Discharge ED (Routine); Ordered 08/02/23 Ordered By: Ivan Alvares Referrals: Vasyl Gaspar MD [Primary Care Provider] - Discharge Diet: Usual diet Discharge Activity: Resume usual activity Patient Instructions: Trigeminal Neuralgia (ED), Opioid Safety, Pain Management Activity Restrictions/Additional Instructions: Thank you for choosing [facility] for your healthcare needs today. Please realize this is an emergency room and that we are providing you with a medical screening exam and this may not be complete and all inclusive of all the testing and or work up that you may need to determine your ailment or severity of your illness. It is very important that you follow up as instructed or that you return to the Emergency Department should you have concerns or if your condition changes or worsens in any way. Case management encouraged her to follow-up with neurology. Coding Level of Care Code ED Wire Wheeler for Kelsie Salcedo
[2023-08-02 09:25] LABS: Alanine Aminotransferase 9 U/L (0-41); Albumin Level 3.9 g/dL (3.5-5.2); Alkaline Phosphatase 82 U/L (40-130); Aspartate Amino Transferase 15 U/L (0-40); Blood Urea Nitrogen 18 mg/dL (8-23); Calcium 8.8 mg/dL (8.5-10.5); Carbon Dioxide 21 mmol/L (22-29); Chloride 103 mmol/L (98-107); Creatinine Clr Calc Pharmacy 72.6785; Globulin 2.7 g/dL (1.3-4.6); Glucose 118 mg/dL (65-115); Osmolality Calculated 289 mOsm/kg (285-295); Sodium 138 mmol/L (136-145); Total Bilirubin 0.5 mg/dL (0.15-1.2); Total Protein 6.6 g/dL (6.6-8.7)
--- NOTE | 2023-08-02 09:26 | ECG_ITS ---
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 Measurements Intervals [place] Rate: 69 P: 37 UT: 195 QRS: 53 QRSD: 109 T: 57 QT: 364 QTc: 391 Interpretive Statements SINUS RHYTHM LOW QRS VOLTAGE IN PRECORDIAL LEADS [QRS DEFLECTION < 1.0 mV IN CHEST LEADS] No previous ECG available for comparison Electronically Signed On 08-02-2023 9:38:11 [facility] DIRECTOR by Gm Mishra M.D. [id number]
[2023-08-02 09:27] LABS: Anion Gap 17.6 (5-19); Potassium 3.6 mmol/L (3.5-5.1)
[2023-08-02] MEDS: carBAMazepine 200 mg Tablet PO (09:34)
[2023-08-02] MEDS: LIDOCAINE 100 MG IV (10:02)
[2023-08-02] MEDS: lamoTRIgine 25 mg Tablet 50 MG PO (11:48)
[2023-08-02] MEDS: HYDROmorphone 1 mg/mL INJ 1 mL 0.5 MG IVP (12:38)
[2023-08-02] MEDS: orphenadrine 30 mg/mL Inj 2 mL 60 MG IM (12:39)
[2023-08-02] MEDS: phenytoin 1,000 MG in sodium chloride 0.9% (100 ml) 100 ML, non-DEHP filter tubing onc ... 270 MG IV (12:50)
--- NOTE | 2023-08-03 08:45 | DCPLANNER ---
Message sent to Neurology for a follow up ZAIDA- It is very important that you follow up as instructed
== END 2023-08-02 14:01 | disposition home or self-care (01) ==
PROVIDERS: Emergency Provider Family Medicine; PCP Family Medicine
DX: G50.0 Trigeminal neuralgia (principal); Z79.82 Long term (current) use of aspirin; E78.5 Hyperlipidemia, unspecified; I25.10 Atherosclerotic heart disease of native coronary artery without angina pectoris; I10 Essential (primary) hypertension; I25.2 Old myocardial infarction
CPT/HCPCS: 80053; 85025; 93005; 96365; 96366; 96367; 96372; 96375; 99284; J1165; J1170; J2001; J2360

== ENCOUNTER 2023-08-04 12:09 | Emergency (ER) | payer MEDICARE, SELFPAY ==
[2023-08-04 12:17] VITALS: BP 144/76; PULSE 69; RESP 16; TEMP 36.6; O2SAT 97
--- NOTE | 2023-08-04 13:37 | W.ED.GENADLT ---
HPI - General Adult General: Chief complaint: General Medical Stated complaint: pain in left ear Time Seen by Provider: 08/04/23 13:10 Source: patient Mode of arrival: ambulatory Limitations: no limitations History of Present Illness: Patient is an 78-year-old male presents to the ED today for evaluation and COVID related to his trigeminal neuralgia. Patient states he has been experiencing intermittent pains related to his trigeminal neuralgia for 30 years. He states he takes chronic carbamazepine for this. He states over the past year he has had 3 severe episodes. Patient was seen here in our emergency department on 07/31 and given Decadron, Benadryl, Toradol, Dilaudid. He was seen the following day and after consultation with Dr. Douglas he was given Tegretol, IV lidocaine, Lamictal, Norflex, Lacosamide, Dilantin, Dilaudid. Patient states none of these medications worked. Provider at that time reportedly filed a case management referral to get him set up with neurology. During my initial assessment patient has placed a headband over his eyes and over his ears and a ball cap on top of this. He states for what ever reason this has significantly helped with his pain and later during his visit states his pain has completely alleviated. Onset (ago): day(s) Location: face Severity: severe Severity scale (1-10): 10 Quality: stabbing and sharp Pain Consistency: intermittent Relieving factors: other (placing a headband over his head/ears along with his hat) Exacerbating factors: none Associated symptoms: Reports headache(s); Deny chest pain, confusion, dyspnea, malaise, nausea, rash or vomiting Review of Systems Const: Denies: fever(s), chills, body aches, fatigue or malaise Eyes: Denies: change in vision, blurry vision, photophobia, eye discomfort, eye discharge, floaters or seeing flashes ENMT: Reports: ear or mastoid pain (posterior auricular pain); Denies: throat pain, odynophagia, oral sores, ear discharge, change in hearing, tinnitus, disequilibrium, nasal discharge, nasal congestion or sinus pain Card: Denies: chest pain Resp: Denies: dyspnea GI: Denies: nausea or vomiting Musc: Denies: neck pain, back pain, extremity pain or joint pain Skin/Breast: Denies: rash Neuro: Reports: headache(s); Denies: numbness in extremities, weakness in extremities, sensory changes or confusion PFSH ED PFSH: Medical History Polyuria Fatigue Pt ATTRIBUTES THIS TO THE NECK SURGERY HE HAD 2008. Dyslipidemia (high LDL; low HDL) Atherosclerosis of coronary artery of [place] heart without angina pectoris High cholesterol Carpal tunnel syndrome HTN (hypertension) Hx of hyperlipidemia Hx of myocardial infarction Cricopharyngeal achalasia Nasal turbinate hypertrophy Deviated septum Dysphagia Surgical History History of carpal tunnel surgery H/O shoulder surgery H/O neck surgery Hx of angioplasty Family History Father No problems noted. Mother , in her 90's No problems noted. Other CAD (coronary artery disease) Cancer Stroke Denies family history of Diabetes Clotting disorder Dementia Hyperlipidemia Psychiatric illness Chronic kidney disease (CKD) Suicide Anesthesia complication Bleeding disorder Family history of premature coronary artery disease Lung disease Hypertension Social History Smoking and tobacco/nicotine status: never used tobacco/nicotine Alcohol intake: never Substance/Drug Use: never Marital status: Current occupational status: retired Physical Exam Const: COMMON NORMALS: average body habitus, patient oriented x3, no limitations, healthy appearing, alert and well nourished GENERAL APPEARANCE: cooperative ORIENTATION/CONSCIOUSNESS: Yes awake, Yes oriented to person, Yes oriented to place and Yes oriented to time HENMT: COMMON NORMALS: normocephalic, atraumatic, hearing grossly normal bilaterally, external ears normal, EAC's normal and TM's normal bilaterally HEAD & SCALP: normal to inspection, normocephalic and atraumatic FACE & SINUS: normal facial exam EXTERNAL EAR: Yes external ears normal EXTERNAL AUDITORY CANAL: EAC's normal TYMPANIC MEMBRANE: TM's normal bilaterally Eye: GENERAL EYE: appearance normal, both eyes and all related structures and normal light reflex DIRECT OPHTHALMOSCOPY: Yes normal light reflex Neck/C-Spine: COMMON NORMALS: full ROM and no lymphadenopathy GENERAL: Yes normal visual inspection Neuro: COMMON NORMALS: patient oriented x3 SENSORIUM/ORIENTATION: Yes alert, Yes oriented to person, Yes oriented to place and Yes oriented to time Course Vital Signs: Vital signs: Vital Signs Temperature 97.8 F 08/04/23 12:17 Pulse Rate 69 08/04/23 12:17 Respiratory Rate 16 08/04/23 12:17 Blood Pressure 144/76 08/04/23 12:17 Pulse Oximetry 97 08/04/23 12:17 Oxygen Delivery Me thod Room Air 08/04/23 12:17 MDM - General Adult Medical Decision Making During my initial assessment with patient he had placed some type of headband over his ears and eyes along with his ball cap over this. He states since doing this the frequency of his sharp, stabbing exacerbations have significantly reduced. He states prior to his ER visit he was having an episode every 16 seconds. He states now they have slowed to maybe one every 5 to 10 minutes[address] After speaking to Dr. Alvares decision was made to try IV Dilantin, Carbamazepine, Lamictal which patient was agreeable to. Discussed not doing anything given his already improved symptoms but he is scared it will return so wants to try meds. He stated IV Dilantin burned going in even after reducing rate so this was stopped. During re-assessment he states he is not having any discomfort currently and wants to go home. Made sure CM was placed for neurology follow up. Medical Records I reviewed the patient's medical records. No radiology studies performed this visit Discharge Plan Discharge Patient Disposition: Home Clinical Impression: Trigeminal neuralgia Condition: Stable Prescriptions: No Action cholecalciferol (vitamin D3) 50 mcg (2,000 unit) capsule 100 mcg PO DAILY aspirin [Adult Low Dose Aspirin] 81 mg tablet,delayed release (DR/EC) 81 mg PO BEDTIME cyanocobalamin (vitamin B-12) 1,000 mcg capsule 1,000 mcg PO DAILY coenzyme Q10 [Co Q-10] 200 mg capsule 400 mg PO DAILY nitroglycerin 0.4 mg tablet, sublingual See Rx Instructions .ROUTE .COMPLEX Qty: 100 5RF Dose Instruction: DISSOLVE 1 TABLET UNDER THE TONGUE EVERY 5 MINUTES NEEDED FOR CHEST PAIN, DO NOT EXCEED 3 DOSES PER EPISODE Rx Instructions: DISSOLVE 1 TABLET UNDER THE TONGUE EVERY 5 MINUTES NEEDED FOR CHEST PAIN, DO NOT EXCEED 3 DOSES PER EPISODE losartan [Cozaar] 25 mg tablet 25 mg PO DAILY Qty: 90 3RF pravastatin 40 mg tablet 40 mg PO BEDTIME gemfibrozil 600 mg tablet 600 mg PO BID Lamictal 100 mg tablet 50 mg PO BID 30 Days Qty: 30 0RF Rx Instructions: 50 mg twice daily x 14 days then increase to 100 mg twice daily carbamazepine 100 mg tablet,chewable 200 mg PO BID Qty: 120 0RF Discharge Orders: Discharge ED (Routine); Ordered 08/04/23 Ordered By: Sally Brown Referrals: Vasyl Gaspar MD [Primary Care Provider] - Patient Instructions: Trigeminal Neuralgia (ED) Coding Level of Care Code ED Project Structural Engineer for Maria Dolroesg Denisse
[2023-08-04] MEDS: carBAMazepine 200 mg Tablet PO (13:48)
[2023-08-04] MEDS: lamoTRIgine 25 mg Tablet 50 MG PO (13:48)
[2023-08-04] MEDS: phenytoin 1,000 MG in sodium chloride 0.9% (100 ml) 100 ML, non-DEHP filter tubing onc ... 270 MG IV (13:59)
--- NOTE | 2023-08-04 15:50 | DCPLANNER ---
Message sent to Neurology for a follow up appointment -
== END 2023-08-04 14:47 | disposition home or self-care (01) ==
PROVIDERS: Emergency Provider Physician Assistant; PCP Family Medicine
DX: G50.0 Trigeminal neuralgia (principal); Z79.82 Long term (current) use of aspirin; E78.5 Hyperlipidemia, unspecified; I25.10 Atherosclerotic heart disease of native coronary artery without angina pectoris; I10 Essential (primary) hypertension; I25.2 Old myocardial infarction
CPT/HCPCS: 96365; 99284; A4222; J1165

== ENCOUNTER → 2023-08-24 09:15 | Outpatient (BNVA) | payer MEDICARE, SELFPAY | PROVIDERS: PCP Family Medicine; Visit Provider Podiatrist Foot & Ankle Surgery | DX: L60.3 Nail dystrophy (principal); L84 Corns and callosities; I73.9 Peripheral vascular disease, unspecified | CPT/HCPCS: 99203 ==

== ENCOUNTER → 2023-11-11 15:07 | Outpatient (BNVA) | payer MEDICARE, SELFPAY | PROVIDERS: PCP Family Medicine; Visit Provider Internal Medicine Cardiovascular Disease | DX: I25.10 Atherosclerotic heart disease of native coronary artery without angina pectoris (principal); I10 Essential (primary) hypertension; I83.91 Asymptomatic varicose veins of right lower extremity; E78.5 Hyperlipidemia, unspecified | CPT/HCPCS: 99214 ==

== ENCOUNTER 2024-03-29 15:57 | Emergency (ER) | payer MEDICARE, SELFPAY ==
[2024-03-29 15:58] VITALS: BP 106/57; PULSE 71; RESP 18; TEMP 36.4; O2SAT 95
[2024-03-29 16:03] VITALS: BP 115/57; PULSE 88; RESP 16; O2SAT 98
--- NOTE | 2024-03-29 16:03 | XRR_ITS ---
PROCEDURE INFORMATION: Exam: XR Chest Exam date and time: 03/29/2024 4:17 PM Age: 79 years old Clinical indication: Other: Weakness and swelling of legs TECHNIQUE: Imaging protocol: Radiologic exam of the chest. Views: 1 view. COMPARISON: CR XR chest 2V* [id number] 11/24/2022 4:21 PM FINDINGS: Lungs: Unremarkable. No consolidation or mass. Pleural spaces: Unremarkable. No pleural effusion. No pneumothorax. Heart/Mediastinum: Unremarkable. No cardiomegaly. Bones/joints: Unremarkable. XR/XR chest 1V portable [id number] IMPRESSION: No acute findings.
--- NOTE | 2024-03-29 16:03 | CTR_ITS ---
PROCEDURE INFORMATION: Exam: CT Head Without Contrast Exam date and time: 03/29/2024 4:51 PM Age: 79 years old Clinical indication: Injury or trauma; Fall; Blunt trauma (contusions or hematomas); Additional info: Fall head trauma TECHNIQUE: Imaging protocol: Computed tomography of the head without contrast. Radiation optimization: All CT scans at this facility use at least one of these dose optimization techniques: automated exposure control; mA and/or kV adjustment per patient size (includes targeted exams where dose is matched to clinical indication); or iterative reconstruction. COMPARISON: CR XR skull min 4V* [id number] 10/31/2021 8:18 AM RADIATION DOSE METRICS: Total DLP (mGy-cm): 1315.98 FINDINGS: Brain: No intracranial hemorrhage. There is global parenchymal volume loss. Periventricular white matter hypoattenuation is nonspecific but most likely due to small vessel disease. No evidence of acute territorial infarct or cerebral edema. No mass effect or midline shift. Cerebral ventricles: Prominent ventricles likely secondary to volume loss. Paranasal sinuses: Mild mucosal thickening of the paranasal sinuses. No air-fluid levels. Mastoid air cells: The mastoid air cells are clear. Bones: The calvarium is intact. Soft tissues: Soft tissues are unremarkable as visualized. CT/CT head wo con* [id number] IMPRESSION: No acute intracranial findings.
--- NOTE | 2024-03-29 16:03 | ECG_ITS ---
[facility]: 2024[facility]29 Pat Name: Vasyl Tam Department: Room: Gender: Male Guide Foreign Tour: : 1945 Requested By: Brian Wise Order Number: [id number] Kenzie MD: Avery Juan M.D. Measurements Intervals [place] Rate: 70 P: 64 [place]: 190 QRS: 54 QRSD: 103 T: 27 QT: 376 QTc: 406 Interpretive Statements SINUS RHYTHM LOW QRS VOLTAGE IN PRECORDIAL LEADS [QRS DEFLECTION < 1.0 mV IN CHEST LEADS] Nonspecific changes nonspecific ST changes in the inferior leads Compared to ECG 08/02/2023 09:37:09 No significant change no significant change Electronically Signed On 03-29-2024 16:46:07 CDT by Avery Juan M.D. [id number]
--- NOTE | 2024-03-29 16:20 | W.ED.WEAKNES ---
HPI - Weakness General: Chief complaint: Weakness Stated complaint: fall , hit head Time Seen by Provider: 03/29/24 15:58 History of Present Illness: Patient presents to the ER for feeling dizzy and hypotensive. Patient states he has been dizzy for about a month. He was hypotensive when the nurse came to his house earlier today. Upon arrival his blood pressure was 106/57, patient also states he fell in his head last night on table. Denies any overt injury or loss of consciousness. Review of Systems General: Reports: 10 or more systems reviewed and unremarkable except in HPI and below PFSH ED PFSH: Medical History Polyuria Fatigue Pt ATTRIBUTES THIS TO THE NECK SURGERY HE HAD 2008. Dyslipidemia (high LDL; low HDL) Atherosclerosis of coronary artery of [place] without angina pectoris High cholesterol Carpal tunnel syndrome HTN (hypertension) Hx of hyperlipidemia Hx of myocardial infarction Cricopharyngeal achalasia Nasal turbinate hypertrophy Deviated septum Dysphagia Surgical History History of carpal tunnel surgery H/O shoulder surgery H/O neck surgery Hx of angioplasty Family History Father No problems noted. Mother , in her 90's No problems noted. Other CAD (coronary artery disease) Cancer Stroke Denies family history of Diabetes Clotting disorder Dementia Hyperlipidemia Psychiatric illness Chronic kidney disease (CKD) Suicide Anesthesia complication Bleeding disorder Family history of premature coronary artery disease Lung disease Hypertension Social History Smoking and tobacco/nicotine status: never used tobacco/nicotine Alcohol intake: never Substance/Drug Use: never Marital status: Current occupational status: retired Physical Exam Const: COMMON NORMALS: no acute distress, average body habitus, patient oriented x3, no limitations, healthy appearing, alert and well nourished HENMT: COMMON NORMALS: normocephalic, atraumatic, hearing grossly normal bilaterally, external ears normal, Normal external nose present and moist oral mucous membranes HEAD & SCALP: normocephalic and atraumatic NOSE: Normal external nose present EXTERNAL EAR: Yes external ears normal Neck/C-Spine: COMMON NORMALS: full ROM, no lymphadenopathy, supple, no meningeal signs, no JVD and Thyroid normal THYROID: Thyroid normal Chest: COMMONS NORMALS: normal inspection of the chest and normal palpation of entire chest wall Resp: COMMON NORMALS: normal respiratory effort, No retractions, No use of accessory muscles and clear to auscultation bilaterally AUSCULTATION: clear to auscultation bilaterally Cardio: COMMON NORMALS: no JVD, regular rate, regular rhythm, S1 normal heart sound present, S2 normal heart sound present, No gallops present (Cardio), No clicks present (Cardio), No murmurs present (Cardio) and No rub (Cardio) RATE: regular rate RHYTHM: regular rhythm HEART SOUNDS: S1 normal heart sound present and S2 normal heart sound present GI: COMMON NORMALS: Normal to inspection, nondistended, normoactive bowel sounds present, Soft to palpation, non-tender, No hepatosplenomegaly present and no masses PALPATION: Yes Soft to palpation and Yes No hepatosplenomegaly present Neuro: COMMON NORMALS: patient oriented x3 SENSORIUM/ORIENTATION: Yes alert MENINGEAL SIGNS: Yes no meningeal signs Course Vital Signs: Vital signs: Vital Signs Temperature 97.5 F L 03/29/24 15:58 Pulse Rate 67 03/29/24 18:09 Respiratory Rate 16 03/29/24 18:09 Blood Pressure 113/59 03/29/24 18:09 Pulse Oximetry 98 03/29/24 18:09 Oxygen Delivery Me thod Room Air 03/29/24 18:09 MDM - Weakness Medical Decision Making Lab work that included CBC CMP cardiac enzymes, serial EKGs, chest x-ray, head CT, all of which essentially were negative. Patient will be discharged home. Medical Records I reviewed the patient's medical records. Lab Data I reviewed the patient's lab results. 03/29/24 16:30 03/29/24 16:30 Radiology Impressions Chest X-Ray 03/29/24 16:03 IMPRESSION: No acute findings. Head CT 03/29/24 16:03 IMPRESSION: No acute intracranial findings. Laboratory Results WBC 4.39 10^3/uL (3.29-11.43) 03/29/24 16:30 RBC 4.23 10^6/uL (3.85-5.65) 03/29/24 16:30 Hgb 12.60 g/dL (11.27-16.99) 03/29/24 16:30 Hct 38.0 % (37-53) 03/29/24 16: MCV 89.8 fl (82-101) 03/29/24 16: MCH 29.8 pg (27-33) 03/29/24 16: MCHC 33.2 g/dL (30-55) 03/29/24 16: RDW 13.2 % (12.1-15.1) 03/29/24 16:30 Plt Count 215 10^3/cmm (157-399) 03/29/24 16:30 MPV 9.7 fL (7.4-10.4) 03/29/24 16:30 Neut % (Auto) 59.9 % 03/29/24 16:30 Lymph % (Auto) 25.7 % 03/29/24 16:30 Faulk % (Auto) 11.4 % 03/29/24 16:30 Eos % (Auto) 1.1 % 03/29/24 16: Baso % (Auto) 1.4 % 03/29/24 16:30 Neut # (Auto) 2.63 10^3/uL (1.8-7.7) 03/29/24 16:30 Lymph # (Auto) 1.1 10^3/uL (0.8-4.8) 03/29/24 16:30 Faulk # (Auto) 0.5 10^3/uL (0.2-0.9) 03/29/24 16:30 Eos # (Auto) 0.1 10^3/uL (0.0-0.8) 03/29/24 16:30 Baso # (Auto) 0.1 10^3/uL (0.0-0.1) 03/29/24 16:30 Nucleated RBC % (auto) 0 % 03/29/24: Nucleated RBCs # 0.0 /100WBC 03/29/24 16:30 Sodium 140 mmol/L (136-145) 03/29/24 16:30 Potassium 4.0 mmol/L (3.5-5.1) 03/29/24 16:30 Chloride 100 mmol/L (98-107) 03/29/24 16:30 Carbon Dioxide 29 mmol/L (22-29) 10/30/24 16:30 Anion Gap 15.0 (5-19) 03/29/24 16:30 BUN 19 mg/dL (8-23) 03/29/24 16:30 Creatinine 1.1 mg/dL (0.7-1.2) 03/29/24 16:30 GFR Calculation Not Reportable 03/29/24 16:30 Glucose 111 mg/dL (65-115) 03/29/24 16:30 Calculated Osmolality 293 mOsm/kg (285-295) 03/29/24 16:30 Calcium 8.8 mg/dL (8.5-10.5) 03/29/24 16:30 Magnesium 2.2 mg/dL (1.7-2.3) 03/29/24 16:30 Total Bilirubin 0.8 mg/dL (0.15-1.2) 03/29/24 16:30 AST 18 U/L (0-40) 03/29/24 16:30 ALT 8 U/L (0-41) 03/29/24 16:30 Alkaline Phosphatase 90 U/L (40-130) 03/29/24 16:30 Troponin T Baseline 19 ng/L (0-15) H 03/29/24 16:30 Troponin T 120 Minute 15.27 ng/L (0-15) H 03/29/24 18:00 Delta Troponin T -3.73 ABS# (0-10) L 03/29/24 18:00 Total Protein 5.8 g/dL (6.6-8.7) L 03/29/24 16:30 Albumin 4.1 g/dL (3.5-5.2) 03/29/24 16:30 Globulin 1.7 g/dL (1.3-4.6) 03/29/24 16:30 All radiology interpretation(s) finalized by discharge Discharge Plan Discharge Patient Disposition: Home Clinical Impression: Dizziness, Hypotension Condition: Stable Prescriptions: No Action cholecalciferol (vitamin D3) 50 mcg (2,000 unit) capsule 100 mcg PO DAILY aspirin [Adult Low Dose Aspirin] 81 mg tablet,delayed release (DR/EC) 81 mg PO BEDTIME cyanocobalamin (vitamin B-12) 1,000 mcg capsule 1,000 mcg PO DAILY coenzyme Q10 [Co Q-10] 200 mg capsule 400 mg PO DAILY nitroglycerin 0.4 mg tablet, sublingual See Rx Instructions .ROUTE .COMPLEX Qty: 100 5RF Dose Instruction: DISSOLVE 1 TABLET UNDER THE TONGUE EVERY 5 MINUTES NEEDED FOR CHEST PAIN, DO NOT EXCEED 3 DOSES PER EPISODE Rx Instructions: DISSOLVE 1 TABLET UNDER THE TONGUE EVERY 5 MINUTES NEEDED FOR CHEST PAIN, DO NOT EXCEED 3 DOSES PER EPISODE losartan 25 mg tablet See Rx Instructions .ROUTE .COMPLEX Qty: 90 3RF Dose Instruction: TAKE 1 TABLET DAILY Rx Instructions: TAKE 1 TABLET DAILY gemfibrozil 600 mg tablet See Rx Instructions .ROUTE .COMPLEX Qty: 180 3RF Dose Instruction: TAKE 1 TABLET TWICE A DAY Rx Instructions: TAKE 1 TABLET TWICE A DAY carbamazepine 100 mg tablet,chewable 200 mg PO BID Qty: 120 0RF Discharge Orders: Discharge ED (Routine); Ordered 03/29/24 Ordered By: Brian Wise Referrals: Vasyl Gaspar MD [Primary Care Provider] - 1 week Patient Instructions: Dizziness, Hypotension (ED) Activity Restrictions/Additional Instructions: Your evaluation ER that included lab work, chest x-ray, head CT, EKG all of which essentially benign. Please keep a log of your blood pressures and follow-up with your family proximal physician within next 7 days for further evaluation treatment. Coding Level of Care Code ED Senior Regulatory Affairs Specialist for Chg Fwd Related Data Home Medications Medication Instructions Recorded Confirmed aspirin 81 mg tablet,delayed 81 mg PO BEDTIME 07/05/19 08/24/23 release (Adult Low Dose Aspirin) coenzyme Q10 200 mg capsule (Co 400 mg PO DAILY 07/05/19 08/24/23 Q-10) cyanocobalamin (vitamin B-12) 1,000 mcg PO DAILY 07/05/19 08/24/23 1,000 mcg capsule cholecalciferol (vitamin D3) 50 100 mcg PO DAILY 05/28/21 08/24/23 mcg (2,000 unit) capsule Previous Rx's Medication Instructions Recorded nitroglycerin 0.4 mg sublingual See Rx Instructions .Route 06/02/23 tablet .COMPLEX #100 tabs carbamazepine 100 mg chewable 200 mg (2 x 100 mg) PO BID #120 08/02/23 tablet tabs losartan 25 mg tablet See Rx Instructions .Route 11/22/23 .COMPLEX #90 tabs gemfibrozil 600 mg tablet See Rx Instructions .Route 01/14/24 .COMPLEX #180 tabs Allergies Allergy/AdvReac Type Severity Reaction Status Date / Time atorvastatin [From Lipitor] Allergy back/kidney Verified 11/11/23 15:58 pain pseudoephedrine Allergy dizziness Verified 11/11/23 15:58
[2024-03-29 16:38] LABS: Basophils # 0.1 10^3/uL (0.0-0.1); Basophils % 1.4 %; Eosinophils # 0.1 10^3/uL (0.0-0.8); Eosinophils % 1.1 %; Lymphocytes # 1.1 10^3/uL (0.8-4.8); Lymphocytes % 25.7 %; Mean Corpuscular HGB Conc 33.2 g/dL (30-55); Mean Corpuscular Hemoglobin 29.8 pg (27-33); Mean Corpuscular Volume 89.8 fl (82-101); Mean Platelet Volume 9.7 fL (7.4-10.4); Monocytes # 0.5 10^3/uL (0.2-0.9); Monocytes % 11.4 %; Neutrophils # 2.63 10^3/uL (1.8-7.7); Neutrophils % 59.9 %; Nucleated Red Blood Cells % 0 %; Platelet Count 215 10^3/cmm (157-399); Red Blood Count 4.23 10^6/uL (3.85-5.65); Red Cell Distribution Width 13.2 % (12.1-15.1); White Blood Count 4.39 10^3/uL (3.29-11.43)
[2024-03-29 17:10] LABS: Troponin(5th) Baseline 19 ng/L (0-15)
[2024-03-29 17:12] VITALS: BP 106/62; PULSE 67; RESP 16; O2SAT 100
[2024-03-29 17:12] LABS: Alanine Aminotransferase 8 U/L (0-41); Albumin Level 4.1 g/dL (3.5-5.2); Alkaline Phosphatase 90 U/L (40-130); Aspartate Amino Transferase 18 U/L (0-40); Blood Urea Nitrogen 19 mg/dL (8-23); Calcium 8.8 mg/dL (8.5-10.5); Carbon Dioxide 29 mmol/L (22-29); Chloride 100 mmol/L (98-107); Creatinine Clr Calc Pharmacy 54.2833; Globulin 1.7 g/dL (1.3-4.6); Glucose 111 mg/dL (65-115); Magnesium 2.2 mg/dL (1.7-2.3); Osmolality Calculated 293 mOsm/kg (285-295); Sodium 140 mmol/L (136-145); Total Bilirubin 0.8 mg/dL (0.15-1.2); Total Protein 5.8 g/dL (6.6-8.7)
--- NOTE | 2024-03-29 18:03 | ECG_ITS ---
[employer] 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 Measurements Intervals [place] Rate: 64 P: 77 CO: 169 QRS: 61 QRSD: 99 T: 52 QT: 382 QTc: 396 Interpretive Statements SINUS RHYTHM LOW QRS VOLTAGE IN PRECORDIAL LEADS Compared to ECG 03/29/2024 16:27:14 ST (T wave) deviation no longer present Electronically Signed On 03-29-2024 18:11:02 CDT by Avery Juan M.D. [email or web address]
[2024-03-29 18:09] VITALS: BP 113/59; PULSE 67; RESP 16; O2SAT 98
[2024-03-29 18:28] LABS: Troponin 5 2HR 15.27 ng/L (0-15)
[2024-03-29 18:30] LABS: Troponin 5 2HR Delta -3.73 ABS# (0-10)
[2024-03-29 18:44] VITALS: BP 113/60; PULSE 78; RESP 16; O2SAT 99
== END 2024-03-29 18:46 | disposition home or self-care (01) ==
PROVIDERS: Emergency Provider Emergency Medicine; PCP Family Medicine
DX: R42 Dizziness and giddiness (principal); I95.9 Hypotension, unspecified; Z79.82 Long term (current) use of aspirin; I10 Essential (primary) hypertension; I25.2 Old myocardial infarction
CPT/HCPCS: 70450; 71045; 80053; 83735; 84484; 85025; 93005; 99285

== ENCOUNTER 2024-12-06 14:44 | Emergency (ER) | payer MEDICARE, SELFPAY ==
[2024-12-06 14:45] VITALS: BP 131/80; PULSE 98; RESP 18; TEMP 37; O2SAT 97
--- NOTE | 2024-12-06 14:49 | ED_ITS ---
HPI - Male Genitourinary General: Chief complaint: Urogenital-Male Stated complaint: Septic Time Seen by Provider: 12/06/24 14:44 Source: patient and EMS Mode of arrival: EMS Limitations: no limitations History of Present Illness: 79-year-old male here from [facility] with urinary retention. He is currently on hospice is having severe suprapubic pain states has not urinated in over a day. Denies any fever denies any vomiting he rates his pain a 9 out of 10 currently Associated symptoms: Deny dysuria, nausea or vomiting Related Data Home Medications ?Medication ?Instructions ?Recorded ?Confirmed aspirin 81 mg tablet,delayed 81 mg PO BEDTIME 07/05/19 08/24/23 release (Adult Low Dose Aspirin) coenzyme Q10 200 mg capsule (Co 400 mg PO DAILY 08/24/23 Q-10) cyanocobalamin (vitamin B-12) 1,000 mcg PO DAILY 07/0508/24/23 1,000 mcg capsule cholecalciferol (vitamin D3) 50 100 mcg PO DAILY 05/2808/24/23 mcg (2,000 unit) capsule Previous Rx's ?Medication ?Instructions ?Recorded nitroglycerin 0.4 mg sublingual See Rx Instructions .R oute 06/02/23 tablet .COMPLEX #100 tabs carbamazepine 100 mg chewable 200 mg (2 x 100 mg) PO B ID #[id number] 08/02/23 tablet tabs losartan 25 mg tablet See Rx Instructions .Route 0 11/22/23 .COMPLEX #90 tabs gemfibrozil 600 mg tablet See Rx Instructions .Route 0 01/14/24 .COMPLEX #180 tabs Allergies Allergy/AdvReac Type Severity Reaction Status Date / Time atorvastatin (From Lipitor) Allergy back/kidney Verified 11/11/23 15:58 pain pseudoephedrine Allergy dizziness Verified 11/11/23 15:58 Review of Systems Const: Denies: fever(s), chills, body aches or change in appetite ENMT: Denies: throat pain or dental pain Card: Denies: chest pain Resp: Denies: dyspnea GI: Reports: abdominal pain; Denies: nausea, vomiting or diarrhea : Reports: difficulty urinating; Denies: dysuria Musc: Denies: neck pain or back pain Skin/Breast: Denies: rash Neuro: Denies: headache(s) PFSH ED PFSH: Medical History Polyuria Fatigue Pt ATTRIBUTES THIS TO THE NECK SURGERY HE HAD 2008. Dyslipidemia (high LDL; low HDL) Atherosclerosis of coronary artery of [place] heart without angina pectoris High cholesterol Carpal tunnel syndrome HTN (hypertension) Hx of hyperlipidemia Hx of myocardial infarction Cricopharyngeal achalasia Nasal turbinate hypertrophy Deviated septum Dysphagia Surgical History History of carpal tunnel surgery H/O shoulder surgery H/O neck surgery Hx of angioplasty Family History Father No problems noted. Mother , in her 90's No problems noted. Other CAD (coronary artery disease) Cancer Stroke Denies family history of Diabetes Clotting disorder Dementia Hyperlipidemia Psychiatric illness Chronic kidney disease (CKD) Suicide Anesthesia complication Bleeding disorder Family history of premature coronary artery disease Lung disease Hypertension Social History Smoking and tobacco/nicotine status: never used tobacco/nicotine Alcohol intake: never Substance/Drug Use: never Marital status: Current occupational status: retired Physical Exam Const: COMMON NORMALS: no acute distress, patient oriented x3 and healthy appearing HENMT: COMMON NORMALS: normocephalic and atraumatic HEAD & SCALP: normocephalic and atraumatic Eye: COMMON NORMALS: conjunctivae normal CONJUNCTIVA: Yes conjunctivae normal Neck/C-Spine: COMMON NORMALS: full ROM and supple Chest: COMMONS NORMALS: normal inspection of the chest Resp: COMMON NORMALS: normal respiratory effort Cardio: COMMON NORMALS: regular rate, regular rhythm and No murmurs present (Cardio) RATE: regular rate RHYTHM: regular rhythm GI: COMMON NORMALS: Normal to inspection, nondistended, normoactive bowel sounds present, Soft to palpation and no masses PALPATION: Yes Soft to palpation OTHER: Suprapubic tenderness Extremity: COMMON NORMALS: normal to inspection and full ROM Neuro: COMMON NORMALS: patient oriented x3, moves all extremities and no focal motor deficits Psych: COMMON NORMALS: mental status grossly normal, Normal thought process present and cooperative THOUGHT PROCESS: Normal thought process present Skin: COMMON NORMALS: no rashes or lesions noted and no wounds GENERAL SKIN EXAM: no rashes or lesions noted Course Vital Signs: Vital signs: Vital Signs Temperature 98.6 F 12/06/24 14:45 Pulse Rate 77 12/06/24 15:33 Respiratory Rate 16 12/06/24 15:33 Blood Pressure 107/78 12/06/24 15:33 Pulse Oximetry 99 12/06/24 15:33 Oxygen Delivery Me thod Room Air 12/06/24 15:33 MDM - Male Medical Decision Making Patient presents for urinary retention did place a [facility]hp[facility] was able to get roughly 1000 mL of urine out he stable for discharge back to [facility] on hospice. Medical Records I reviewed the patient's medical records. No radiology studies performed this visit Discharge Plan Discharge Patient Disposition: Home Clinical Impression: Acute retention of urine Condition: Stable Prescriptions: No Action cholecalciferol (vitamin D3) 50 mcg (2,000 unit) capsule 100 mcg PO DAILY aspirin [Adult Low Dose Aspirin] 81 mg tablet,delayed release (DR/EC) 81 mg PO BEDTIME cyanocobalamin (vitamin B-12) 1,000 mcg capsule 1,000 mcg PO DAILY coenzyme Q10 [Co Q-10] 200 mg capsule 400 mg PO DAILY nitroglycerin 0.4 mg tablet, sublingual See Rx Instructions .ROUTE .COMPLEX Qty: 100 5RF Dose Instruction: DISSOLVE 1 TABLET UNDER THE TONGUE EVERY 5 MINUTES NEEDED FOR CHEST PAIN, DO NOT EXCEED 3 DOSES PER EPISODE Rx Instructions: DISSOLVE 1 TABLET UNDER THE TONGUE EVERY 5 MINUTES NEEDED FOR CHEST PAIN, DO NOT EXCEED 3 DOSES PER EPISODE losartan 25 mg tablet See Rx Instructions .ROUTE .COMPLEX Qty: 90 3RF Dose Instruction: TAKE 1 TABLET DAILY Rx Instructions: TAKE 1 TABLET DAILY gemfibrozil 600 mg tablet See Rx Instructions .ROUTE .COMPLEX Qty: 180 3RF Dose Instruction: TAKE 1 TABLET TWICE A DAY Rx Instructions: TAKE 1 TABLET TWICE A DAY carbamazepine 100 mg tablet,chewable 200 mg PO BID Qty: 120 0RF Discharge Orders: Discharge ED (Routine); Ordered 12/06/24 Ordered By: Lavon Mercer Referrals: Vasyl Gaspar MD [Primary Care Provider, Family Practice] - 4-7 days Discharge Diet: Advance as tolerated Discharge Activity: Resume usual activity Patient Instructions: Urinary Retention in Men (ED) Print Language: Icelandic Coding Level of Care Code ED Music Adapter for Chg Fwd
--- OUTSIDE RECORDS SUMMARY | 2024-12-06 14:58 | XMS_ITS | Clinical Summary ---
Author Organization [facility] Address [address] 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
--- OUTSIDE RECORDS SUMMARY | 2024-12-06 14:58 | XMS_ITS | Clinical Summary ---
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
--- OUTSIDE RECORDS SUMMARY | 2024-12-06 14:58 | XMS_ITS | Encounter Summary ---
Author Organization [facility] Address [address] [place] [address] Care Team Providers Care Head Of Physics Name Role Phone Unavailable Primary Care Provider Unavailabl e Encounter Details Date Type Department Care Team (Latest Contact Info) Description 12/02/2005 Outpatient Historical [facility]- [facility] [place] [address] [place] [address] Jr Peterson MD NO ADDRESS ON FILE Other Seborrheic Keratosis (Primary Dx); Neoplasm of Uncertain Behavior of Skin Social History Tobacco Use Types Packs/Day Years Used Date Smoking Tobacco: Never Assessed Sex and Gender Information Value Date Recorded Sex Assigned at Not on file 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
--- OUTSIDE RECORDS SUMMARY | 2024-12-06 14:58 | XMS_ITS | Data Portability ---
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 Plan of Treatment Reminders Order Date Submit Date Provider Last Modified By Organization Details Last Modified Time Details Appointments None recorded. Lab CMP, serum or plasma 2024 025 [place] [facility], [address] [facility], [facility] [place], [address], 14:04:17 CBC 2024 025 [place] [facility], [address] [facility], [facility] 1, [place], [address], 14:00:50 magnesium, serum or plasma 2024 025 [place] [facility], [address] [place] [address], [address] [place], [address], 15:07:32 prealbumin, serum 2024 025 [place] [facility], [address] [place] [address] 248, [address], [place], [address], 15:07:34 Referral None recorded. Procedures None recorded. Surgeries None recorded. Imaging None recorded. Medication Orders carbidopa ER 25 mg-levodopa 100 mg tablet,exte nded release 2024 025 [id number], [address], [address], [place], [address], 5 15:13:09 Miralax 17 gram/dose oral powder 2024 025 [id number], [address], [address], [place], [address], 5 14:40:25 galantamine ER 8 mg 24 hr capsule,ext ended release 2024 025 [id number], [address], [address], [place], [address], 5 15:09:27 oxybutynin chloride 5 mg tablet 2024 025 [id number], [address], [address], [place], [address], 14:40:25 iVizia (PF) 0.5 % eye gel in a dropperette 2024 [id number], [address], [address], [place], [address], 14:53:25 Patient TargetsNo targets recorded. Patient InstructionsNo instructions recorded. Reason for Referral None Reported. Results Created Date Observation Date Name Description Value Unit Range Abnormal Flag Note LastModifiedBy Organization Detail LastModifiedTime 08/01/19 25 07/31/2024 CBC WBC 5.4 x10 4.5-10 .5 Not Available [facility] [address], [place], [address], 07/31/2024 14:00:50 08/01/19 25 07/31/2024 CBC RBC 4.74 x10 4.30-5 .90 Not Available [facility] [address] [facility] 1, [place], [address], 07/31/2024 14:00:50 08/01/19 25 07/31/2024 CBC HGB 14.7 g/dL 13.5-1 8.0 Not Available [facility] [address] [facility] 1, [place], [address], 07/31/2024 14:00:50 08/01/19 25 07/31/2024 CBC HCT 41.9 % 35.0-6 0.0 Not Available [facility] [address] [facility] 1, [place], [address], 07/31/2024 14:00:50 08/01/19 25 07/31/2024 CBC MCV 88.5 fL 80.0-9 9.9 Not Available [facility] [address] [facility] 1, [place], [address], 07/31/2024 14:00:50 08/01/19 25 07/31/2024 CBC MCH 31.0 pg 27.0-3 2.0 Not Available [facility] [address] [facility] 1, [place], [address], 07/31/2024 14:00:50 08/01/19 25 07/31/2024 CBC MCHC 35.1 g/dL 32.0-3 6.0 Not Available [facility] [address] [facility] 1, [place], [address], 07/31/2024 14:00:50 08/01/19 25 07/31/2024 CBC RDW 14.5 % 11.5-1 4.5 Not Available [facility] [address] [facility] 1, [place], [address], 07/31/2024 14:00:50 08/01/19 25 07/31/2024 CBC plt 217.7 x10 150.0- 451.0 Not Available [facility] [address] [facility] 1, [place], [address], 07/31/2024 14:00:50 08/01/19 25 07/31/2024 CBC lymphocytes % 19.5 % 20.0-5 0.0 low Not Available [facility] [address] [facility] 1, [place], [address], 07/31/2024 14:00:50 08/01/19 25 07/31/2024 CBC granulcytes % 69.8 % 30.0-7 0.0 Not Available [facility] [address] [facility] 1, [place], [address], 07/31/2024 14:00:50 08/01/19 25 07/31/2024 CBC monocytes % 9.5 % 2.0-16 .0 Not Available [facility] [address] [facility] 1, [place], [address], 07/31/2024 14:00:50 08/01/19 25 07/31/2024 CBC granulcytes# 3.7 x10 Not Eloisa ilable [facility] [address] [facility] 1, [place], [address], 07/31/2024 14:00:50 08/01/19 25 07/31/2024 CBC lymphocytes # 1.0 x10 Not Available [facility] [address] [facility] 1, [place], [address], 07/31/2024 14:00:50 08/01/19 25 07/31/2024 CBC monocytes # 0.5 x10 Not Avai lable [facility] [address] [facility] 1, [place], [address], 07/31/2024 14:00:50 08/01/19 25 07/31/2024 CMP (MALE ) glucose 111.0 mg/dL 60.0-9 9.0 high Not Available [facility] [address] [facility], [place], [address], 07/31/2024 14:04:17 08/01/19 25 07/31/2024 CMP (MALE ) BUN (blood urea nitrogen) 16.0 mg/dL 10.0-2 6.0 Not Available [facility] [address] [facility] 1, [place], [address], 07/31/2024 14:04:17 08/01/19 25 07/31/2024 CMP (MALE ) creatinine (serum) 0.9 mg/dL 0.4-1. 5 Not Available [facility] [address] [facility] 1, [place], [address], 07/31/2024 14:04:17 08/01/19 25 07/31/2024 CMP (MALE ) BUN/creatini ne ratio 17.78 ratio Not Available [facility] [address] [facility] 1, [place], [address], 07/31/2024 14:04:17 08/01/19 25 07/31/2024 CMP (MALE ) eGFR calculated 86.1 Not Available [facility] [address] [facility] 1, [place], [address], 07/31/2024 14:04:17 08/01/19 25 07/31/2024 CMP (MALE ) total protein 6.8 g/dL 6.0-8. 5 Not Available [facility] [address] [facility] 1, [place], [address], 07/31/2024 14:04:17 08/01/19 25 07/31/2024 CMP (MALE ) total bilirubin 0.6 mg/dL 0.2-1. 3 Not Available [facility] [address], [place], [address], 07/31/2024 14:04:17 08/01/19 25 07/31/2024 CMP (MALE ) albumin 4.1 g/dL 3.5-5. 5 Not Available [facility] [address] [facility] 1, [place], [address], 07/31/2024 14:04:17 08/01/19 25 07/31/2024 CMP (MALE ) globulin 2.7 calc Not Available [facility] [address] [facility], [place], [address], 07/31/2024 14:04:17 08/01/19 25 07/31/2024 CMP (MALE ) AST (SGOT) 23.0 U/L 0.0-46 .0 Not Available [facility] [address] [facility] 1, [place], [address], 07/31/2024 14:04:17 08/01/19 25 07/31/2024 CMP (MALE ) altv (SGPT) 17.0 U/L 13.0-6 9.0 normal Not Available [facility] [address] [facility] 1, [place], [address], 07/31/2024 14:04:17 08/01/19 25 07/31/2024 CMP (MALE ) A/G ratio 1.5 ratio Not Available [facility] [address] [facility] 1, [place], [address], 07/31/2024 14:04:17 08/01/19 25 07/31/2024 CMP (MALE ) ALP phos 95.0 U/L 30.0-1 40.0 normal Not Available [facility] [address] [facility] 1, [place], [address], 07/31/2024 14:04:17 08/01/19 25 07/31/2024 CMP (MALE ) calcium 8.9 mg/dL 8.4-10 .5 Not Available [facility] [address] [facility] 1, [place], [address], 07/31/2024 14:04:17 08/01/19 25 07/31/2024 CMP (MALE ) sodium 133.0 mmol/ L 136.0- 145.0 low Not Available [facility] [address] [facility] 1, [place], [address], 07/31/2024 14:04:17 08/01/19 25 07/31/2024 CMP (MALE ) potassium 4.1 mmol/ L 3.5-5. 1 Not Available [facility] [address] [facility] 1, [place], [address], 07/31/2024 14:04:17 08/01/19 25 07/31/2024 CMP (MALE ) chloride 94.0 mmol/ L 98.0-1 10.0 abnormal Not Available [facility] [address] [facility] 1, [place], [address], 07/31/2024 14:04:17 08/01/19 25 07/31/2024 CMP (MALE ) C02 32.0 mmol/ L 22.0-3 1.0 high Not Available [facility] [address] [facility] 1, [place], [address], 07/31/2024 14:04:17 08/01/19 25 07/31/2024 CMP (MALE ) anion gap 7.0 calc Not Available [facility] [address] [facility] 1, [place], [address], 07/31/2024 14:04:17 08/01/19 25 07/31/2024 CMP (MALE ) osmolality 276.9 calc Not Available [facility] [address] [facility], [place], [address], 07/31/2024 14:04:17 08/01/19 25 08/01/2024 MAGNE SIUM magnesium 2.1 mg/dL 1.5-2. 5 normal Not Available [facility] [address] [address], [place], [address], 08/01/2024 15:07:32 08/01/19 25 08/01/2024 PREAL BUMIN prealbumin 20 mg/dL 21-43 low Not Available [facility] [address] [address], [place], [address], 08/01/2024 15:07:33 Result Notes None recorded. Problems Name Problem SNOMED Code Status Onset Date Resolution Date Notes Provider Name and Address Organization Details Recorded Time Colonosc opy Completed 202207/31/2024 Colonosc opy; [address] Valencia (normal) [facility] by Dr. Kaba on 03/04/11 (Diverti culosis) ; 07/24/19 11:14AM by iLsa Wilson, Office Visit; Promoted ; acuity set as *; LISA araya [facility] 14:30:17 Myocardi al infarcti on 71501715 Active 2022 Myocardi al infarcti on; 1985; 1993; 07/24/19 11:14AM by Lisa Wilson, Office Visit; Promoted ; acuity set as *; LISA araya [facility] 14:29:56 Esophago gastrodu odenosco py Completed 202207/31/2024 EGD w/BX: [facility] by Dr. Kaba on 03/04/11; 07/24/19 11:14AM by Lisa Wilson, Office Visit; Promoted ; acuity set as *; LISA araya [facility] 14:30:17 Fluorosc opy guided angiopla sty of artery with contrast Active 2022 Angiopla sty; x2; 07/24/19 23 11:14AM by Lisa Wilson, Office Visit; Promoted ; acuity set as *; [facility] 14:29:56 Trigemin al neuralgi a 01677279 Active 2022 LISA WILSON [facility] 5 14:29:56 Onychomy cosis 322025467 Completed 202307/31/2024 LISA WILSON [facility] 5 14:30:17 Benign prostati c hyperpla suni 080977182 Active 2023 LISA WILSON [facility] 14:29:56 Pain in lower limb 07446882 Completed 202207/31/2024 LISA WILSON [facility] 5 14:30:17 Orthosta tic hypotens ion 15115114 Active 2023 LISA WILSON [facility] 5 14:29:56 Unintent ional weight loss 449506888 Active 2023 LISA WILSON [facility] 5 14:29:56 Poor short-te rm memory 222916534 Active 2023 LISA WILSON [facility] 5 14:29:56 Dysphagi a 79979194 Active 2023 LISA WILSON [facility] 5 14:29:56 Urethral stenosis 956028846 Active 2023 LISA WILSON null, [facility] 5 14:29:56 Hypotens jeffy episode 45346315 Completed 202307/31/2024 LISA WILSON null, [facility] 5 14:30:17 Poor long-ter m memory 180324386 Active 2023 LISA WILSON null, [facility] 5 14:29:56 Tremor 65862361 Active 2023 LISA WILSON null, [facility] 14:29:56 Urinary incontin ence 732306562 Active 2024 [facility] 14:29:56 Constipa tion 43166029 Active 2024 LISA WILSON null, [facility] 14:29:55 Dry eyes 648203147 Completed 202407/31/2024 [facility] 14:30:17 Abdomina l pain 65098043 Completed 202407/31/2024 [facility] 14:30:17 Dementia 62399577 Active 2024 LISA WILSON null, [facility] 5 14:29:56 Polyuria 55084626 Active 2024 LISA WILSON null, [facility] 5 16:05:34 Parkinso n's disease 32453573 Active 2024 LISA WILSON null, [facility] 5 16:05:28 Trochant nati bursitis of left hip 28306048073 9103 Completed 202207/31/2024 LISA araya, [facility] 5 14:30:17 Problem Notes None recorded. Medical Equipment None Reported. Allergies Allergen ID Allergen Name Allergen Category Reaction Reaction Severity Criticality Documentation Date Start Date Code Code System Note Provider Name and Address Organization Details Recorded Time 97191 chlorphen iramine / pseudoeph edrine medicatio n other mild low 12/26/2022 46853 5 RxNorm React ion: urina ry urgen cy Yumiko araya [facility] 4 10:18:28 5491 Lopid medicatio n nausea mild low 12/16/2022 [address] [facility] 4 10:18:31 Medications Name Sig Start Date Stop Date Status Note LastModified by Organization Details LastModified Time carbidopa ER 25 mg-levodo pa 100 mg tablet,ex tended release TAKE 1 TABLET BY MOUTH TWICE A DAY active Not Available Not Available No t Available pravastat in 40 mg tablet active Not Available Not Available Not Available hydrocodo ne 5 mg-acetam inophen 325 mg tablet 12/16 completed Not Available Not Available Not Available carbamaze pine ER 100 mg tablet,ex tended release,1 2 hr TAKE 1 TABLET BY MOUTH TWICE DAILY active Not Available Not Available No t Available prednison e 20 mg tablet TAKE 1 TABLET BY MOUTH EVERY DAY 12/16 completed Not Available Not Available Not Available methylpre dnisolone 4 mg tablet TAKE 6 TABLETS ON DAY 1 DIRECTED ON PACKAGE AND DECREASE BY 1 TAB EACH DAY FOR A TOTAL OF 6 DAYS 12/16 completed Not Available Not Available Not Available amlodipin e 5 mg tablet TAKE 1 TABLET BY MOUTH EVERY DAY 12/16 completed Not Available Not Available Not Available ciproflox acin 500 mg tablet Take 1 tablet every 12 hours by oral route for 5 days. 02/08 completed Not Available Not Available Not Available triamcino lone acetonide 0.1 % topical cream APPLY TO AFFECTED AREA TWICE A DAY 09/08 completed Not Available Not Available Not Available triflurid ine 1 % eye drops USE DIRECTED 02/08 completed Not Available Not Available Not Available betametha sone acetate and sodium phos 6 mg/mL suspensio n for injection Take 1 mL by injectio n route for 1 day. 11/17 completed Not Available Not Available Not Available tamsulosi n 0.4 mg capsule TAKE 1 CAPSULE BY MOUTH EVERY DAY active Not Available Not Available No t Available gemfibroz il 600 mg tablet BID active Not Available Not Available Not Available carbamaze pine 100 mg chewable tablet Chew 1 tablet twice a day by oral route. active Not Available Not Available No t Available losartan 25 mg tablet active Not Available Not Available Not Available nitroglyc cynthia 0.4 mg sublingua l tablet DISSOLVE 1 TABLET UNDER THE TONGUE EVERY 5 MINUTES NEEDED FOR CHEST PAIN, DO NOT EXCEED 3 DOSES active Not Available Not Available No t Available gabapenti n 100 mg capsule TAKE 1 CAPSULE BY MOUTH TWICE A DAY FOR RIGHT LEG PAIN active Not Available Not Available No t Available polyethyl jovani glycol 3350 17 gram/dose oral powder DISSOLVE 17 GRAMS INTO APPROPRI ATE LIQUID AND DRINK BY MOUTH DAILY active Not Available Not Available No t Available methylpre dnisolone 4 mg tablets in a dose pack TAKE PER PACKAGE INSTRUCT IONS, NEEDED FOR REFRACTO RY L SIDED HEADACHE 12/16 completed Not Available Not Available Not Available carbidopa 25 mg-levodo pa 100 mg tablet take ONE tablet BY MOUTH TWICE DAILY 2024 active Not Available Not Available Not Avai lable oxybutyni n chloride 5 mg tablet take ONE tablet BY MOUTH TWICE DAILY 2024 active Not Available Not Available Not Avai lable lamotrigi ne 100 mg tablet TAKE 1/2 TAB BY MOUTH TWICE A DAY FOR 14 DAYS, THEN INCREASE TO 1 TAB TWICE DAILY THEREAFT ER 11/12 completed Not Available Not Available Not Available finasteri de 5 mg tablet daily 11/12 completed Not Available Not Available Not Available metoprolo l tartrate 25 mg tablet daily 02/08 completed 0; Recorded 07/24/19 23 11:14AM by Lisa Wilson, Office Visit; Not Available Not Available Not Available carbamaze pine ER 100 mg capsule,e xtended release [id number] r Take 1 capsule twice a day by oral route for 90 days. 05/02 completed Not Available Not Available Not Available galantami ne ER 8 mg 24 hr capsule,e xtended release TAKE 1 CAPSULE BY MOUTH EVERY DAY 09/08 completed Not Available Not Available Not Available EpiPen as needed 2017 active Not Available Not Available Not Avai lable aspirin daily 02/08 completed 0; Recorded 07/24/19 23 11:14AM by Lisa Wilson, Office Visit; Not Available Not Available Not Available Co Q-10 active Not Available Not Avail able Not Available carbamaze pine BID 02/08 completed 0; Recorded 07/24/19 23 12:07PM by Chan Gaspar MD, Annotati on/Fabricio dum; Not Available Not Available Not Available pravastat in daily 02/08 completed 0; Recorded 07/24/19 23 11:14AM by Lisa Wilson, Office Visit; Not Available Not Available Not Available gemfibroz il bid 02/08 completed 0; Recorded 07/24/19 23 11:14AM by Lisa Wilson, Office Visit; Not Available Not Available Not Available Vitamin D3 2000 IU active Not Available Not Available Not Available [place] 3 active Not Available Not Avail able Not Available Allergy and Congestio n Relief active Not Available Not Available Not Available Lamictal XR 50 mg tablet,ex tended release Take 1 tablet twice a day by oral route. 11/12 completed FROM ER Not Available Not Available Not Available B12 DAILY 09/08 completed Not Available Not Available Not Available lidocaine 5 % topical ointment USE FOR SELF CATHETER IZE WITH A URETHRAL DILATOR. 09/08 completed Not Available Not Available Not Available Vitamin B12 1000mg active Not Available Not Available Not Available losartan potassium (bulk) daily 02/08 completed 0; Recorded 07/24/19 23 11:14AM by Lisa Wilson, Office Visit; Not Available Not Available Not Available aspirin 81 mg capsule Take 1 capsule every day by oral route. active Not Available Not Available No t Available iVizia (PF) 0.5 % eye gel in a dropperet te Apply 2 droppere ttes 3 times a day by ophthalm ic route. 09/08 completed Not Available Not Available Not Available Vitals Date Recorded Body height Body mass index (BMI) Body weight Heart rate Systolic And Diastolic Provider Name and Address Organization Details Last Updated DateTime 06/07/2024 177.8 cm 20.4 kg/m2 37634.12 g 78 /min 112/72 mm[Hg] JAKE [facility] 5 13:59:58 Date Recorded Body height Body mass index (BMI) Body weight Oxygen saturation Oxygen saturation in Arterial blood by Pulse oximetry Heart rate Systolic And Diastolic Provider Name and Address Organization Details Last Updated DateTime 5 177.8 cm 19.5 kg/m2 30863.5 6 g 96 % 96 % 80 /min 100/60 mm[Hg] [facility] 5 11:44:27 Date Recorded Body height Body mass index (BMI) Body weight Heart rate Systolic And Diastolic Provider Name and Address Organization Details Last Updated DateTime 09/08/2024 177.8 cm 20.4 kg/m2 85121.12 g 72 /min 120/70 mm[Hg] JAKE [facility] 5 14:48:24 Date Recorded Body height Body mass index (BMI) Body weight Heart rate Oxygen saturation Oxygen saturation in Arterial blood by Pulse oximetry Systolic And Diastolic Provider Name and Address Organization Details Last Updated DateTime 5 177.8 cm 21.2 kg/m2 56273.6 7 g 73 /min 97 % 97 % 110/60 mm[Hg] [facility] 5 15:57:36 Date Recorded Body height Body mass index (BMI) Body weight Oxygen saturation Oxygen saturation in Arterial blood by Pulse oximetry Heart rate Systolic And Diastolic Provider Name and Address Organization Details Last Updated DateTime 4 177.8 cm 21.4 kg/m2 91600.2 6 g 96 % 96 % 84 /min 132/80 mm[Hg] [facility] 4 10:38:58 Social History Question Answer Notes LastModified by Organizat ion Details LastModified Time Tobacco Smoking Status [facility] 15:55:50 What Was The Date Of Your Most Recent Tobacco Screening? 11/13/2023 [email or web address] Information not available 11/13/2023 Sex: Unknown Functional Status Question Answer Note LastModified by Organizat ion Details LastModified Time Do you use any illicit or recreational drugs? No [email or web address] Information not available 09/30/2022 What is your level of alcohol consumption? None [email or web address] Information not available 09/30/2022 Mental Status None recorded. Family History Nothing Reported. Medical History Condition Response Coronary Artery Disease N Other Y Gout N Kidney Stones N Blood Diseases N Hyperthyroidism N Breast Cancer N Blood Transfusion N Hypothyroidism N Depression N COPD N Lung Disease N Defects or Inherited Disease N Developmental or Behavioral Disorders N Breast Problem N Difficulty Swallowing N Anesthesia Complications N Anxiety Disorder N Meniere's disease N Muscle, Joint, or Bone Problems N Vision or Eye Problems N Arthritis N Polyps N Infertility N Cancer N Varicosities N Stroke N Endometriosis N Bladder or Kidney Problems N High Cholesterol N Liver Disease N Headaches N Fibromyalgia N Kidney Disease N Allergies/Hayfever Y Heart Problems Y Ear or Hearing Problems N Hospitalizations N Thyroid Problems N GI Problems N ADD/ADHD N Skin Problems N Eating Disorder N Anemia N Constipation N Mental Illness N Ovarian Cancer N Diabetes N Bedwetting N Seizures/Epilepsy N Tuberculosis N Eczema N Diverticulitis N Abuse/Domestic Violence N Asthma N Reflux/GERD N Hepatitis N Heart Disease N Pulmonary Embolism N Chronic Ear Infections N Pre-Eclampsia N Hypertension N Chicken Pox N Autism Spectrum Disorder (ASD) N Osteoporosis N Thrombophilias N Immunizations Vaccine Type Date Status Note Provider Nam e and Address Organization Details Recorded Time Influenza, split virus, trivalent, preservative 2 completed Not Available [facility] 02/08/2023 09:59:42 Influenza, MDCK, quadrivalent, PF 9 completed Not Available [facility]08[facility] 09:59:42 Influenza, split virus, trivalent, preservative 8 completed [facility] Available [facility] 02/08/2023 09:59:42 Influenza, split virus, trivalent, preservative 7 completed Not Available [facility] 02/08/2023 09:59:42 Pneumococcal conjugate PCV 13 7 completed Not Available [facility] 02/08/2023 09:59:42 Influenza, split virus, trivalent, preservative 5 completed Not Available [facility] 02/08/2023 09:59:42 Influenza, high-dose, quadrivalent, PF 3 completed Not Available [facility] 10/18/2024 15:05:10 Influenza, high-dose, trivalent, PF 4 completed Not Available [facility] 10/18/2024 15:05:10 Influenza, high-dose, quadrivalent, PF 2 [facility]/23[facility]22 11:55:52 Influenza, high-dose, quadrivalent, PF 1 completed [facility] 12/23/2022 11:55:52 COVID-19, mRNA, LNP-S, PF, 100 mcg/0.5mL dose or 50 mcg/0.25mL dose 1 completed [facility] 12/23/2022 11:55:52 COVID-19, mRNA, LNP-S, PF, 100 mcg/0.5mL dose or 50 mcg/0.25mL dose 1 completed LISA araya, [facility] 12/23/2022 11:55:52 COVID-19, mRNA, LNP-S, PF, 100 mcg/0.5mL dose or 50 mcg/0.25mL dose 1 completed LISA WILSON [facility] 12/23/2022 11:55:52 pneumococcal polysaccharide PPV23 8 [facility] 11:55:52 pneumococcal polysaccharide PPV23 9 completed LISA araya [place] [facility] 12/23/2022 11:55:52 Past Encounters Encounter ID Performer Location Encounter Start Date Encounter Closed Date Diagnosis/Indication Diagnosis SNOMED-CT Code Diagnosis ICD10 Code Diagnosis Note [id number] Chan Gaspar MD [facility]) [address] [place] [address] [id number] 5 09/30/2022 15:39:52 09/30/2022 19:44:30 Trochanteric bursitis of left hip [id number] 81750 M70.62 [id number] Chan Gaspar MD [facility]) [address] [place] [address] [id number] 5 12/16/2022 15:54:09 12/16/2022 17:13:17 History of malignant neoplasm of prostate 147955693 Z85.46 Trigeminal neuralgia 316 74307 G50.0 Doing well at this time with present meds. [id number] Chan Gaspar MD [facility]) [address] [place] [address] [id number] 5 12/23/2022 11:54:53 12/23/2022 17:06:44 Pain in lower limb 31691678 M79.671 [id number] Chan Gaspar MD [facility]) [address] [place] [address] [id number] 5 02/08/2023 09:59:03 02/08/2023 17:52:23 Pain in lower limb 71400464 M79.604 stable. Myocardial infarction 22 567300 I21.9 stable at this time. Trigeminal neuralgia 316 80894 G50.0 Doing well at this time with present meds. Trochanter ic bursitis of left hip 3090911252 55066 M70.62 stable. Seasonal a llergic rhinitis 080313391 J30.2 recommend OTC Cetirizine and Flonase. [id number] Chan Gaspar MD [facility]) [address] [place] [address] [id number] 5 08/09/2023 09:45:19 08/09/2023 10:44:46 Trigeminal neuralgia 57736717 G50.0 pain is now improved. Onychomycosis 396907687 B35.1 Benign pro static hyperplasia 486450107 N40.0 Sensation of irritation of eye proper 528220261 H57.89 [id number] CONCHIS SUTTON [facility] [address] [place] [address] [id number] 5 11/13/2023 10:12:51 11/13/2023 11:00:16 Pain of left hip joint 1457092921 42587 M25.552 Follow up with PCP Dr Gaspar . [id number] Jayden Hammond MD [facility]) [address] [place] [address] [id number] 5 11/18/2023 13:59:16 11/21/2023 18:31:13 Orthostatic hypotension 52823364 I95.1 Patient does have orthostasi s based on exam and axis. Recommend the patient courage fluids and recommend 64 ounces of fluid daily. We will check labs today. I want the patient to follow-up closely with PCP [id number] Chan Gaspar MD [facility]) [address] [place] [address] [id number] 5 11/26/2023 09:44:06 11/26/2023 11:42:31 Orthostatic hypotension 12468060 I95.1 Benign pro static hyperplasia 623736895 N40.0 He is going to try Super Beta Prostate. Unintentio nal weight loss 510658232 R63.4 [id number] CONCHIS WILLIAMSON [facility]) [address] [place] [address] [id number] 5 01/08/2024 10:38:55 01/08/2024 11:49:12 Painless hematuria 818518365 R31.9 [id number] Chan Gaspar MD [facility]) [address] [place] [address] [id number] 5 02/09/2024 11:23:46 02/09/2024 12:34:17 Myocardial infarction 04499826 I21.9 stable at this time. No recent chest pain or palpitatio ns. Benign pro static hyperplasia 241003553 N40.0 followed by urology in [facility]. Poor short -term memory 586514661 R41.3 worsening. Dysphagia 95760838 R13.1 0 mild at this time, will monitor. [id number] Chan Gaspar MD [facility]) [address] [place], [place] [address]9775-204 5 02/29/2024 13:50:15 03/06/2024 09:40:38 Benign prostatic hyperplasia 847611947 N40.0 followed by urology in [facility]. Urethral stenosis 227459 003 N35.919 will try the dilator that he was given by his urologist. Poor short -term memory 545061256 R41.3 stable. Unintentio nal weight loss 283026022 R63.4 Slow weight loss probably due to stress from his 's illness. [id number] Chan Gaspar MD [facility]) [address] [place] [address] 5 04/04/2024 15:16:48 04/06/2024 08:41:35 Seen in hospital outpatient department 289353009 Z76.89 Hypotensive episode 6776 3001 I95.9 Continued low BP Will stop Losartan and Pravastati n and gemfibrozi l. [id number] Chan Gaspar MD [facility] ([facility]) [address] [place], [place] [phone] 5 05/02/2024 10:23:11 05/05/2024 06:41:35 Poor short-term memory 674218605 R41.3 stable. Myocardial infarction 22 991345 I21.9 stable at this time. No recent chest pain or palpitatio ns. Tremor 06615583 R25.1 felt to be secondary to taking too much Carbemazep ine. He has cut this down. [id number] Chan Gaspar MD [facility]) [address] [place], [place] 344715-204 5 06/07/2024 13:48:11 06/12/2024 09:43:10 Poor long-term memory 131764852 R41.3 Unintentio nal weight loss 882163952 R63.4 Continues but at a slower rate. Will try [place] Instant Breakfast BID. Abdominal pain 97060589 R10.9 LLQ, suspect from constipati on. Urethral stenosis 875256 003 N35.919 Benign pro static hyperplasia 385408764 N40.0 Urinary incontinence 165 095020 R32 Constipation 77756516 K5 9.00 Poor short -term memory 716262470 R41.3 stable. Dry eyes 170384931 H04.1 23 [id number] Chan Gaspar MD [facility]) [address] [place] [address] [id number] 5 07/31/2024 11:31:32 08/01/2024 10:02:49 Poor short-term memory 806159315 R41.3 He denies worsening but family and nursing feel like it is progressiv e. Unintentio nal weight loss 050432365 R63.4 Continues in spite of eating by his report. Trigeminal neuralgia 316 82288 G50.0 pain is now improved. Tremor 24718255 R25.1 Improved Dementia 19433155 F03.90 I have asked the patient to voluntaril y stop driving. [id number] Chan Gaspar MD [facility]) [address] [place] [address] [id number] 5 09/08/2024 14:38:20 09/08/2024 15:36:35 Poor long-term memory 645029282 R41.3 Poor short -term memory 356573562 R41.3 progressiv e Tremor 26627069 R25.1 worsening Possible Parkinsoni sm Dementia 21546314 F03.[address] Unintentio nal weight loss 334251569 R63.4 improved at assisted living. Polyuria 45006148 R35.89 Parkinson's disease 4904 9000 G20.A1 [id number] Chan Gaspar MD [facility]) [address] [place] [address] [id number] 5 10/18/2024 15:03:09 10/18/2024 17:15:03 Parkinson's disease 26963939 G20.A1 stable Dementia 68125931 F03.90 [address]. He is stable. Tremor 12625850 R25.1 Health Concerns Section Related Observation LastModified by Organization Detai ls LastModified Time None Recorded Concern Status LastModified by Organization Details LastModified Time None Recorded Advance Directives Directive None Recorded Payers Insurance Date Sequence Insurance Name Policy Number Policy Dunn Covered Member ID Dunn Member ID Guarantor Name 09/29/2024 1 [place] Chan Tam [id number] Chan Tam 09/29/2024 [place] - [place] A - [id number] (MEDICARE) Chan Tam [id number] Chan Tam 08/30/2024 1 [employer] (MEDICARE REPLACEMENT/ ADVANTAGE - PPO) Chan Tam [id number] Chan Tam Notes Date Note Type Note Provider Name and Address Organization Details Recorded Time 05/02/2024 text/html Has been having some tremors in his hands that has been getting worse the last two weeks.Would like to discuss medications.Has been having some excess saliva. Chan Gaspar MD [address] [place] [address], [phone], [facility], LHeidiLHeidiC. 05/02/2024 11:02:44 06/07/2024 text/html Abdominal PainReported bypatient.Location :[facility] Severity:worse Associated Symptoms:no fever; no chills; no blood in the urine;shortness of breath Chan Gaspar MD [address] [place] [address], [phone], [facility], L.LHeidiC. 06/07/2024 14:40:25 07/31/2024 text/html Has been having a sensation in his right leg that his leg feels cold. No pain. No numbness/tingling. His family would like for him to stop driving due to his worsening problem. Chan Gaspar MD [address] [place] [address], [phone], [facility], Charleen. 07/31/2024 12:17:40 09/08/2024 text/html He lost his to Cancer and he is now at [facility] for assisted living. Chan Gaspar MD [address] [place] [address], [phone], [facility] 09/08/2024 15:22:30
--- OUTSIDE RECORDS SUMMARY | 2024-12-06 14:58 | XMS_ITS | Encounter Summary ---
Author Organization [employer] [facility] Address [address] [place] [address] Care Team Providers Care Coal Gasification Technician Name Role Phone Unavailable Primary Care Provider Unavailabl e Encounter Details Date Type Department Care Team (Latest Contact Info) Description 12/02/2005 Outpatient Historical [facility] [address] [place] [address] 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
[2024-12-06 15:33] VITALS: BP 107/78; PULSE 77; RESP 16; O2SAT 99
[2024-12-06] MEDS: HYDROmorphone 0.5 MG/0.5 ML INJ 1 MG IVP (16:54)
[2024-12-06 16:57] VITALS: BP 124/79; PULSE 89; RESP 16; O2SAT 96
[2024-12-06 16:59] VITALS: BP 124/79; PULSE 86; RESP 16; O2SAT 96
[2024-12-06 17:02] LABS: Glucose Urine UA Negative (Normal); Nitrate Urine Negative (Negative); Specific Gravity, Urine 1.018 (1.005-1.030)
[2024-12-06 17:08] LABS: Add Urine Microscopic? YES
== END 2024-12-06 17:31 | disposition home or self-care (01) ==
PROVIDERS: Emergency Provider Emergency Medicine; PCP Family Medicine
DX: R33.9 Retention of urine, unspecified (principal); E78.5 Hyperlipidemia, unspecified; I10 Essential (primary) hypertension
CPT/HCPCS: 51702; 81001; 96374; 99284; J1171